=== PATIENT | male | born 1965 | race Caucasian/White ===

== ENCOUNTER 2022-11-25 11:47 | Emergency (ER) | payer BC, SELFPAY ==
[2022-11-25 12:13] VITALS: BP 187/116; PULSE 102; RESP 16; TEMP 36.2; O2SAT 96; BMI 27.4
--- NOTE | 2022-11-25 12:13 | ED.GENADULT ---
HPI - General Adult General Chief complaint: Recheck/Abnormal Lab/Rx Stated complaint: High blood pressure Time Seen by Provider: 11/25/22 13:03 Related Data Allergies Allergy/AdvReac Type Severity Reaction Status Date / Time No Known Allergies Allergy Verified 11/25/22 12:12 [facility] Social History Social History Smoked in Last 30 Days: No Use of substances other than those prescribed or required for medical reasons: No Advance Directives: No Advance Directives Information Provided: No Physical Exam ED Vital Signs: Vital Signs - 24 hr 11/25/22 12:13 11/25/22 12:51 11/25/22 14:05 Temperature 97.2 F 97.5 F 97.8 F Pulse Rate 102 H 94 91 Respiratory Rate 16 18 Blood Pressure 187/116 H 158/93 H 136/97 H Pulse Oximetry 96 98 96 Oxygen Delivery Method Room Air Room Air Room Air BMI result Body Mass Index 27.4 Course Course Course Narrative: This is an RME: Additional HPI, ROS, PE not included below will be deferred to primary provider. Patient is a 56-year-old male with history of HTN presenting to the emergency department with elevated blood pressure. Had previously been on atenolol but has not been on for years. Attempted to see PCP to restart BP medication but was told he had not been to the office for too long a period and would need to be seen in the ED. BP at home was reading 160/116. Denies any chest pain, shortness of breath, headaches, or vision changes. Medical Decision Making Lab Data 11/25/22 12:28 11/25/22 12:28 Labs: Lab Results 11/25/22 11/25/22 11/25/22 Range/Units 12:28 12:28 12:28 WBC 8.2 (4.8-10.8) X10*3/uL RBC 5.74 (4.60-5.80) X10*6/uL Hgb 16.9 (14.0-18.0) g/dl Hct 48.6 (42.0-52.0) % MCV 84.7 (80.0-98.0) fL MCH 29.4 (27.0-33.0) pg MCHC 34.8 (31.0-36.0) g/dl RDW 11.7 (11.0-16.0) % Plt Count 270 (160-400) X10*3/uL MPV 9.9 (9.4-12.4) fL Immature Gran % (Auto) 0.2 (0.0-0.4) % Neut % (Auto) 67.1 (45-73) % Lymph % (Auto) 19.6 L (20-40) % [place] % (Auto) 9.3 (2-11) % Eos % (Auto) 3.2 (0-4) % Baso % (Auto) 0.6 (0-2) % Lymph # (Auto) 1.6 (1.2-4.9) X10*3/uL [place] # (Auto) 0.8 (0.1-1.2) X10*3/uL Eos # (Auto) 0.3 (0.0-0.4) X10*3/uL Baso # (Auto) 0.1 (0.0-0.2) X10*3/uL Abs Immat Gran (auto) 0.02 (0.00-0.03) X10*3/uL Absolute Neuts (auto) 5.5 (2.0-8.3) x10*3/uL Absolute Nucleated RBC 0.000 (0.0-0.012) X10*3/uL Nucleated RBC % (auto) 0.0 (0.0-0.2) /100WBC Sodium 140 (135-145) mmol/L Potassium 4.2 (3.3-5.1) mmol/L Chloride 104 (96-108) mmol/L Carbon Dioxide 27 (22-29) mmol/L Anion Gap 13 (12-20) BUN 14 (9-16) mg/dL Creatinine 0.89 (0.5-1.4) mg/dL Estim Creat Clear Calc 91.6 Estimated GFR > 60 Random Glucose 94 (60-115) mg/dL Calcium 10.3 H (8.4-10.2) mg/dL Troponin I High Sens < 2.7 (<3.5-35.0) ng/L Discharge Plan Discharge Clinical Impression: Hypertension Patient Disposition: Home, Self-Care Instructions: Chronic Hypertension (ED) Additional Instructions: Please have your blood pressure recheck in 24-48 hours. Referrals: Paul Bates MD [Physician] - 11/27/22 (Please follow-up with your provider closely for blood pressure recheck in approximately 24-48 hours.) Physician,None [Primary Care Provider] - Interventions: ED Discharge Assessment Last Done: 11/25/22 14:08 Discharge Date/Time: 11/25/22 14:00
--- NOTE | 2022-11-25 12:15 | ECG_ITS ---
Test Reason : elevated blood pressure Blood Pressure : / mmHG Vent. Rate : 063 BPM Atrial Rate : 063 BPM P-R Int : 168 ms QRS Dur : 078 ms QT Int : 406 ms P-R-T Axes : 046 036 055 degrees QTc Int : 415 ms Normal sinus rhythm Normal ECG No previous ECGs available Referred By: Deirdre Olivia Electronically Signed By:AILYN KRISHNAN MD
[2022-11-25 12:33] LABS: MANUAL DIFF FLAG NO
[2022-11-25 12:35] LABS: Basophils Absolute Auto 0.1 X10*3/uL (0.0-0.2); Basophils Percent Auto 0.6 % (0-2); Eosinophils Absolute Auto 0.3 X10*3/uL (0.0-0.4); Eosinophils Percent Auto 3.2 % (0-4); Hematocrit 48.6 % (42.0-52.0); Hemoglobin 16.9 g/dl (14.0-18.0); Imm Gran Abs Auto 0.02 X10*3/uL (0.00-0.03); Imm Gran Pct Auto 0.2 % (0.0-0.4); Lymphocytes Absolute Auto 1.6 X10*3/uL (1.2-4.9); Lymphocytes Percent Auto 19.6 % (20-40); Mean Corpuscular HGB Conc 34.8 g/dl (31.0-36.0); Mean Corpuscular Hemoglobin 29.4 pg (27.0-33.0); Mean Corpuscular Volume 84.7 fL (80.0-98.0); Mean Platelet Volume 9.9 fL (9.4-12.4); Monocytes Absolute Auto 0.8 X10*3/uL (0.1-1.2); Monocytes Percent Auto 9.3 % (2-11); Neutrophils Absolute Auto 5.5 x10*3/uL (2.0-8.3); Neutrophils Percent Auto 67.1 % (45-73); Platelet Count 270 X10*3/uL (160-400); Red Blood Count 5.74 X10*6/uL (4.60-5.80); Red Cell Distribution Width 11.7 % (11.0-16.0); White Blood Count 8.2 X10*3/uL (4.8-10.8)
[2022-11-25 12:51] VITALS: BP 158/93; PULSE 94; TEMP 36.4; O2SAT 98
[2022-11-25 12:51] LABS: Anion Gap 13 (12-20); Blood Urea Nitrogen 14 mg/dL (9-16); Calcium 10.3 mg/dL (8.4-10.2); Carbon Dioxide 27 mmol/L (22-29); Chloride 104 mmol/L (96-108); Creatinine Clr Calc Pharmacy 91.6; Estimated Glomerular Filt Rate > 60; Glucose Random 94 mg/dL (60-115); Potassium 4.2 mmol/L (3.3-5.1); Sodium 140 mmol/L (135-145)
--- NOTE | 2022-11-25 12:57 | PC.NURSE ---
aox4. calm, coop. no neuro deficits. reports mildly improved bp here than at home. no distress noted. denies sob/n/v/d/cp/dizziness or other sx.
[2022-11-25 13:03] LABS: Troponin-I High Sensitivity < 2.7 ng/L (<3.5-35.0)
--- NOTE | 2022-11-25 13:36 | ED_ITS ---
HPI - Recheck/Abnormal Lab/Rx General Chief Complaint: Recheck/Abnormal Lab/Rx Stated Complaint: High blood pressure Time Seen by Provider: 11/25/22 13:03 History of Present Illness HPI narrative: Patient is a 56-year-old male presents today with having elevated blood pressure at home. Patient usually takes his blood pressure when he is at work. 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 He feels stressed at times. Patient measures blood pressure at times there was 160/110. He denies having any symptoms. No chest pain or shortness of breath no nausea no vomiting no headache no dizziness no focal weakness. Patient had a previous history of high blood pressure have been off medications since 2015. He is from home. Related Data Allergies Allergy/AdvReac Type Severity Reaction Status Date / Time No Known Allergies Allergy Verified 11/25/22 12:12 Review of Systems Review of Systems: No fever no chills no chest pain or shortness breath no systemic complaints Yes all other systems are reviewed and are negative [facility] Past Medical History Attestation statement: The following information was validated with the patient. Social History Social History Smoked in Last 30 Days: No Use of substances other than those prescribed or required for medical reasons: No Advance Directives: No Advance Directives Information Provided: No Physical Exam Vital Signs: Vital Signs: Last Vital Signs Temp 97.5 F 11/25/22 12:51 Pulse 94 11/25/22 12:51 Resp 16 11/25/22 12:13 BP 158/93 H 11/25/22 12:51 Pulse Ox 98 11/25/22 12:51 O2 Del Method Room Air 11/25/22 12:51 BMI result Body Mass Index 27.4 Appearance: Alert. Oriented X3. No acute distress. Eyes: Pupils equal, round and reactive to light. ENT: Pharynx normal. Neck: Normal inspection. Neck supple. No lymph nodes noted. No crepitus CVS: Normal heart rate and rhythm. Pulses normal. Normal S1 and S2 Respiratory: No respiratory distress. Breath sounds normal. No Wheezing. No rales Abdomen: Soft and nontender. No rigidity. No distention. good BS x4 Skin: Skin warm and dry. Normal skin color. Normal skin turgor. Extremities: No lower extremity edema. Neurovascular intact to all extremities. No Lacerations. No Rash Neuro: Oriented X 3. No motor deficit. No sensory deficit. Moving all extermities. No slurred speech Medical Decision Making Medical Decision Making [facility] Narrative: Patient asymptomatic. Has many stressful events in his life. His blood pre ssure on recheck in the emergency department is approximately 160/100. Cobb at this time patient should closely follow up with his primary physician in a few days for repeat blood pressure check. Patient's kidney function was normal there is no evidence of kidney failure. My interpretation of patient's EKG showed a sinus rhythm heart rate is 75 the [place] QRS QT see was normal there is no acute ST segment elevation noted. Patient in no distress. Will discharge patient home. Differential Diagnosis Differential Diagnoses: The differential diagnosis associated with the presentation includes Hypertension Lab Data [facility] Lab Attestation statement: I reviewed the patient's lab results. 11/25/22 12:28 11/25/22 12:28 Labs: Lab Results 11/25/22 11/25/22 11/25/22 Range/Units 12:28 12:28 12:28 WBC 8.2 (4.8-10.8) X10*3/uL RBC 5.74 (4.60-5.80) X10*6/uL Hgb 16.9 (14.0-18.0) g/dl Hct 48.6 (42.0-52.0) % MCV 84.7 (80.0-98.0) fL MCH 29.4 (27.0-33.0) pg MCHC 34.8 (31.0-36.0) g/dl RDW 11.7 (11.0-16.0) % Plt Count 270 (160-400) X10*3/uL MPV 9.9 (9.4-12.4) fL Immature Gran % (Auto) 0.2 (0.0-0.4) % Neut % (Auto) 67.1 (45-73) % Lymph % (Auto) 19.6 L (20-40) % [place] % (Auto) 9.3 (2-11) % Eos % (Auto) 3.2 (0-4) % Baso % (Auto) 0.6 (0-2) % Lymph # (Auto) 1.6 (1.2-4.9) X10*3/uL [place] # (Auto) 0.8 (0.1-1.2) X10*3/uL Eos # (Auto) 0.3 (0.0-0.4) X10*3/uL Baso # (Auto) 0.1 (0.0-0.2) X10*3/uL Abs Immat Gran (auto) 0.02 (0.00-0.03) X10*3/uL Absolute Neuts (auto) 5.5 (2.0-8.3) x10*3/uL Absolute Nucleated RBC 0.000 (0.0-0.012) X10*3/uL Nucleated RBC % (auto) 0.0 (0.0-0.2) /100WBC Sodium 140 (135-145) mmol/L Potassium 4.2 (3.3-5.1) mmol/L Chloride 104 (96-108) mmol/L Carbon Dioxide 27 (22-29) mmol/L Anion Gap 13 (12-20) BUN 14 (9-16) mg/dL Creatinine 0.89 (0.5-1.4) mg/dL Estim Creat Clear Calc 91.6 Estimated GFR > 60 Random Glucose 94 (60-115) mg/dL Calcium 10.3 H (8.4-10.2) mg/dL Troponin I High Sens < 2.7 (<3.5-35.0) ng/L Independent Interpretation I performed an independent interpretation of an: EKG Interpretation: Sinus heart rate is 75 [place] QRS QTC within normal limits there is no acute ST segment elevation. Chronic Conditions Patient?s care impacted by: Hypertension Discharge Plan Discharge Clinical Impression: Hypertension Patient Disposition: Home, Self-Care Instructions: Chronic Hypertension (ED) Additional Instructions: Please have your blood pressure recheck in 24-48 hours. Referrals: Physician,None [Primary Care Provider] - Paul Bates MD [Physician] - 11/27/22 (Please follow-up with your provider closely for blood pressure recheck in approximately 24-48 hours.)
[2022-11-25 14:05] VITALS: BP 136/97; PULSE 91; RESP 18; TEMP 36.6; O2SAT 96
--- NOTE | 2022-11-25 14:06 | PC.NURSE ---
remains NSR on monitor. bp has decreased to 136/97. denies sx.
== END 2022-11-25 14:00 | disposition home or self-care (01) ==
PROVIDERS: Registered Nurse Emergency; Emergency Provider Emergency Medicine Emergency Medical Services
DX: I10 Essential (primary) hypertension (principal); Z72.89 Other problems related to lifestyle; Z56.6 Other physical and mental strain related to work; Z79.899 Other long term (current) drug therapy
CPT/HCPCS: 36415; 80048; 84484; 85025; 93005; 99283; 99284

== ENCOUNTER → 2022-11-25 12:15 | Outpatient (BNV) | payer BC, SELFPAY | PROVIDERS: Emergency Provider Emergency Medicine Emergency Medical Services; Visit Provider Internal Medicine Cardiovascular Disease | DX: R03.0 Elevated blood-pressure reading, without diagnosis of hypertension (principal) | CPT/HCPCS: 93010 ==

== ENCOUNTER 2023-02-11 15:32 | Outpatient (AMB) | payer BC, SELFPAY ==
[2023-02-11 15:33] VITALS: BP 162/98; PULSE 95; O2SAT 97; BMI 27.6
--- NOTE | 2023-02-11 15:33 | MHC.PC.OV ---
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 Previous PCP Dr. Bates about 6 years ago. Medical history significant for overweight. Patient also reports that he noticed elevated blood pressures lately, systolic blood pressures in 160s, diastolic blood pressures between 105 and 110. He denies shortness of breath or chest pain, no headache, no vision changes. Reports he was on atenolol in the past for high blood pressure. Denies eye problems, does not see eye doctor. He will call for dental exam. We also discussed patient's need for colon cancer screening, patient will think about colonoscopy or a Cologuard, would like to hold off at this time, he denies changes in bowel movements. Denies other concerns today. [facility] Surgical History H/O vasectomy History of hernia surgery H/O elbow surgery Family History Mother No problems noted. Father No problems noted. Social History Patient Tobacco Use Status: Never used Tobacco service: No Current occupational status: employed Cognitive needs: No Hearing needs: No Vision needs: No Questionnaire PHQ-9 Over the last 2 weeks, how often have you been bothered by any of the following problems? 1. Little interest or pleasure in doing things: not at all 2. Feeling down, depressed, or hopeless: not at all 3. Trouble falling or staying asleep, or sleeping too much: not at all 4. Feeling tired or having little energy: not at all 5. Poor appetite or overeating: not at all 6. Feeling bad about yourself - or that you are a failure or have let yourself or your family down: not at all 7. Trouble concentrating on things, such as reading the newspaper or watching television: not at all 8. Moving or speaking so slowly that other people could have noticed. Or the opposite - being so fidgety or restless that you have been moving around a lot more than usual: not at all 9. Thoughts that you would be better off or of hurting yourself in some way: not at all Total score: 0 Depression Screening Interpretation: Negative 58205 - PHQ-9 Billing: Yes Source: Developed by Drs. Morgan Buchanan, Brunilda Latham, Zeeshan Richard and colleagues, with an educational emiliano from [employer]. Thrive Questionnaire Date Thrive assessed: 02/11/23 I am a: Patient What is your living situation today?: I have a steady place to live Within the past 12 months, did the food you bought not last and you didn't have the money to get more?: Never true Within the past 12 months, did you worry whether your food would run out before you got money to buy more?: Never true Do you have trouble paying for medicines?: No Do you have trouble getting transportation to medical appointments?: No Do you have trouble paying your heating and electricity bill?: No Do you have trouble taking care of your child, family member or friend?: No Do you have trouble with day-to-day activities such as bathing, preparing meals, shopping, managing finances, etc.?: No Are you currently unemployed and looking for a job?: No Are you interested in more education?: No Currently or been in a relationship where the following occur: no concerns reported AUDIT C Alcohol Use Questionnaire (AUDIT-C) 1. How often do you have a drink containing alcohol?: 2-4 times a month 2. How many drinks containing alcohol do you have on a typical day when you are drinking?: 1 or 2 3. How often do you have six or more drinks on one occasion?: Never Total Score: 2 Score Reviewed/Action Taken: No SHERRIE-7 AMB Questionnaire SHERRIE-7 Date SHERRIE - 7 assessed: 02/11/23 Feeling nervous, anxious, or on edge: 0 = Not at all Not being able to stop or control worryin = Not at all Worrying too much about different things: 0 = Not at all Trouble relaxin = Not at all Being so restless that it is hard to sit still: 0 = Not at all Becoming easily annoyed or irritable: 0 = Not at all Feeling afraid as if something awful might happen: 0 = Not at all Total SHERRIE-7 score (0-4 normal; 5-9 mild; 10-14 moderate; 15-21 severe): 0 Source: Developed by Drs. Morgan Buchanan, Brunilda Latham, Zeeshan Richard and colleagues, with an educational emiliano from [employer]. SHERRIE-7 Assessment Billing SHERRIE-7 Assessment Tool: SHERRIE-7 Assessment 49021 Review of Systems Const Denies body aches, Denies chills, Denies fever(s) and Denies headache(s) Eyes Denies change in vision ENT Denies dizziness, Denies otalgia, Denies headache(s), Denies nasal discharge, Denies sinus pain and Denies sore throat Card Denies chest pain, Denies edema, Denies lightheadedness and Denies dyspnea Resp Denies cough, Denies dyspnea and Denies wheezing GI Denies abdominal pain, Denies constipation, Denies diarrhea, Denies nausea and Denies vomiting Denies dysuria Musc Denies myalgias Skin/Breast Denies rash Neuro Denies dizziness and Denies headache(s) Aller/Immun Denies wheezing Physical exam (Primary Care) Vital Signs: Last Vital Signs Pulse 95 02/11/23 15:33 BP 162/98 H 02/11/23 15:33 Pulse Ox 97 02/11/23 15:33 Oxygen Delivery Method Room Air 02/11/23 15:33 BMI result Body Mass Index 27.6 Tobacco/Smoking Status: Tobacco use Status Tobacco use date assessed 02/11/23 02/11/23 15:35 Patient Tobacco Use Status Never used Tobacco 02/11/23 15:35 PHQ-9: PHQ-9 Score PHQ-9: Total score 0 02/11/23 15:35 Depression Screening Interpretation: Negative Thrive Assessment: Date of Thrive Assessment Date Thrive assessed 02/11/23 02/11/23 15:35 Currently or been in a relationship where the following occur: no concerns reported Const General: cooperative and no acute distress Orientation/consciousness: patient oriented x3 HENMT Head: Yes normocephalic and Yes atraumatic Ears: TM's normal bilaterally Face and sinus: Yes sinuses nontender Mouth: oropharynx normal and moist mucous membranes Throat: Yes posterior oropharynx normal Eyes General: appearance normal, both eyes and all related structures Pupils: Equal, round and reactive pupils present EOM: EOMs intact bilaterally Neck Neck: Yes normal visual inspection, Yes full ROM and Yes no lymphadenopathy Thyroid: Thyroid normal Resp Effort & Inspection: normal respiratory effort and able to speak in complete sentences Auscultation: clear to auscultation bilaterally, no crackles, no rales, no rhonchi and no wheezes Cardio Rate: regular rate Rhythm: regular rhythm Heart sounds: S1 normal heart sound present, S2 normal heart sound present and no murmurs GI Palpation (GI): Soft to palpation, not firm, nontender, no guarding, not rigid and no hepatosplenomegaly Auscultation: normal bowel sounds General: No CVA tenderness Back/Spine/Pelvis Back: No CVA tenderness Skin General skin exam: no rashes or lesions noted Neuro General: patient oriented x3 Cranial nerves: Yes Equal, round and reactive pupils present Gait exam (Neuro): Normal gait present Extrem General: Yes full ROM and No edema Assessment and Plan Assessment & Plan (1) Screening for prostate cancer: Code(s): Z12.5 - Encounter for screening for malignant neoplasm of prostate (2) Hypertension: Code(s): I10 - Essential (primary) hypertension Plan: Goal BP equal or less than 140/90 Blood pressure elevated in the office today Patient also reports elevated blood pressures at home Start atenolol 25 mg daily Continue to monitor blood pressures at home Low-sodium diet and weight loss Signs and symptoms reviewed when to notify provider or go to the emergency department Follow-up with nurse in 2 weeks for BP recheck (3) Overweight (BMI 25.0-29.9): Code(s): E66.3 - Overweight Plan: Healthy food choices and exercise as tolerated (4) Adult general medical exam: Code(s): Z00.00 - Encounter for general adult medical examination without abnormal findings (5) Colon cancer screening declined: Code(s): Z53.20 - Procedure and treatment not carried out because of patient's decision for unspecified reasons Plan: Patient will think about colonoscopy or a Cologuard, would like to hold off at this time, denies changes in bowel movements Plan Follow-up in 3 months or sooner as needed Orders: Orders Vitamin D 25-OH Total Today I10 - Essential (primary) hypertension TSH reflex Free T4 Today I10 - Essential (primary) hypertension Lipid Panel Today I10 - Essential (primary) hypertension Complete Blood Count Auto Diff Today I10 - Essential (primary) hypertension Vitamin B12 and Folate Today I10 - Essential (primary) hypertension Comprehensive [place]. Panel Fast Today I10 - Essential (primary) hypertension Prostate Specific Antigen Today Z12.5 - Encounter for screening for malignant neoplasm of prostate Medications: New atenolol 25 mg PO DAILY 30 tabs 3RF I10 - Essential (primary) hypertension Coding Level of Care Code New Pt Prev Care 40-64y([id number]) Diagnoses Screening for prostate cancer Z12.5 Hypertension I10 Overweight (BMI 25.0-29.9) E66.3 Adult general medical exam Z00.00 Colon cancer screening declined Z53.20 Additional Codes SHERRIE-7 Assessment Billing - SHERRIE-7 Assessment Tool: SHERRIE-7 Assessment [id number] ([id number])
[2023-02-11 15:57] VITALS: BP 150/94
== END 2023-02-11 16:06 | disposition home or self-care (01) ==
PROVIDERS: Visit Provider Nurse Practitioner Family
DX: Z12.5 Encounter for screening for malignant neoplasm of prostate (principal); I10 Essential (primary) hypertension; E66.3 Overweight; Z00.00 Encounter for general adult medical examination without abnormal findings; Z53.20 Procedure and treatment not carried out because of patient's decision for unspecified reasons
CPT/HCPCS: 99386

== ENCOUNTER 2023-02-15 07:01 | Outpatient (REF) | payer BC, SELFPAY ==
[2023-02-15 07:25] LABS: MANUAL DIFF FLAG NO
[2023-02-15 08:24] LABS: Basophils Percent Auto 0.4 % (0-2); Eosinophils Absolute Auto 0.2 X10*3/uL (0.0-0.4); Hematocrit 45.9 % (42.0-52.0); Hemoglobin 16.3 g/dl (14.0-18.0); Imm Gran Abs Auto 0.01 X10*3/uL (0.00-0.03); Imm Gran Pct Auto 0.1 % (0.0-0.4); Lymphocytes Absolute Auto 2.5 X10*3/uL (1.2-4.9); Lymphocytes Percent Auto 33.3 % (20-40); Mean Corpuscular HGB Conc 35.5 g/dl (31.0-36.0); Mean Corpuscular Hemoglobin 30.1 pg (27.0-33.0); Mean Corpuscular Volume 84.8 fL (80.0-98.0); Mean Platelet Volume 10.8 fL (9.4-12.4); Monocytes Absolute Auto 0.8 X10*3/uL (0.1-1.2); Monocytes Percent Auto 10.6 % (2-11); Neutrophils Percent Auto 52.6 % (45-73); Platelet Count 249 X10*3/uL (160-400); Red Blood Count 5.41 X10*6/uL (4.60-5.80); Red Cell Distribution Width 11.5 % (11.0-16.0); White Blood Count 7.6 X10*3/uL (4.8-10.8)
[2023-02-15 08:56] LABS: Alanine Aminotransferase 21 U/L (0-40); Albumin Level 4.4 g/dL (3.5-5.0); Alkaline Phosphatase 60 U/L (39-117); Anion Gap 13 (12-20); Aspartate Amino Transferase 20 U/L (5-37); Bilirubin Total 1.6 mg/dL (0.0-1.0); Blood Urea Nitrogen 19 mg/dL (9-16); Calcium 9.8 mg/dL (8.4-10.2); Carbon Dioxide 27 mmol/L (22-29); Chloride 106 mmol/L (96-108); Cholesterol 198 mg/dL (<200); Estimated Glomerular Filt Rate > 60; Glucose Fasting 91 mg/dL (60-99); HDL Cholesterol 42 mg/dL (>40); LDL Cholesterol Calculated 137 mg/dL (<100); Sodium 142 mmol/L (135-145); Total Protein 6.8 g/dL (6.5-8.0); Triglycerides 97 mg/dL (<150)
[2023-02-15 08:57] LABS: TSH reflex Free T4 3.84 uIU/mL (0.32-4.0); Vitamin D 25-OH Total 49.1 ng/mL (>30)
[2023-02-15 09:35] LABS: Folate 10.6 ng/mL (> or = 4.0); Prostate Specific Antigen 4.19 ng/mL (<0.05-4.0); Vitamin B12 387 pg/mL (200-900)
== END 2023-02-15 07:02 | disposition home or self-care (01) ==
LOC: HO.LAB 07:01
PROVIDERS: PCP Nurse Practitioner Family; Visit Provider Nurse Practitioner Family
DX: I10 Essential (primary) hypertension (principal); Z12.5 Encounter for screening for malignant neoplasm of prostate; E80.6 Other disorders of bilirubin metabolism; R97.20 Elevated prostate specific antigen [PSA]; E66.3 Overweight
CPT/HCPCS: 36415; 80053; 80061; 82306; 82607; 82746; 84153; 84443; 85025

== ENCOUNTER 2023-03-24 07:02 | Outpatient (REF) | payer BC, SELFPAY ==
[2023-03-24 08:02] LABS: Alanine Aminotransferase 17 U/L (0-40); Albumin Level 4.6 g/dL (3.5-5.0); Alkaline Phosphatase 68 U/L (39-117); Aspartate Amino Transferase 20 U/L (5-37); Bilirubin Direct 0.4 mg/dL (0.0-0.5); Bilirubin Total 1.9 mg/dL (0.0-1.0); Total Protein 7.3 g/dL (6.5-8.0)
[2023-03-24 08:19] LABS: Prostate Specific Antigen 3.43 ng/mL (<0.05-4.0)
== END 2023-03-24 07:03 | disposition home or self-care (01) ==
LOC: HO.LAB 07:02
PROVIDERS: PCP Nurse Practitioner Family; Visit Provider Nurse Practitioner Family
DX: Z12.5 Encounter for screening for malignant neoplasm of prostate (principal); R17 Unspecified jaundice; R97.20 Elevated prostate specific antigen [PSA]
CPT/HCPCS: 36415; 80076; 84153

== ENCOUNTER 2023-09-10 08:47 | Outpatient (AMB) | payer BC, SELFPAY ==
--- NOTE | 2023-09-10 08:52 | MHC.PC.OV ---
Vital Signs 09/10/23 08:55 Height 5 ft 6 in Weight 171 lb 4 oz BMI 27.6 BP 130/90 H Blood Pressure Location Lt brachial Position Sitting Pulse 65 Pulse Source Pulse Oximeter Pulse Oximetry (%) 97 Oxygen Delivery Method Room Air Intake Visit Reasons: Annual PE /Transfer Of Care Dr. Harrison ( [facility]) Intake Note: Patient is here today for a physical and [employer] from [employer] Required: No Tie Carrier: Not Required per policy Accompanied by: Self / Same As Patient Allergies hydrochlorothiazide Adverse Reaction (Intermediate, Verified 09/10/23 09:47) Dizziness lisinopril Adverse Reaction (Intermediate, Verified 09/10/23 09:47) dizziness Medication List - Last Reconciled 09/10/23 by Bakari Barbosa MD atenolol 25 mg PO DAILY Tobacco use date assessed: 09/10/23 Dental Screening Dental Screen Date: 09/10/23 Did you have a dental visit in the last 12 months?: No Did you have a dental problem in the last 6 months where you did not have access to dental care?: No Was dental information given to patient?: No HPI Annual PE /Transfer Of Care Dr. Harrison ( [facility]) HPI Details Patient comes in today for his follow up visit - is transferring over from Shanel Harrison, who is no longer with the practice He was originally scheduled for an annual physical today but explained to patient that as he just had a physical done with Shanel potts on 02/11/2023, he is not yet due for one and insurance will not cover another physical exam within a year if his last one Patient states that he feels okay and that his blood pressure seems to be adequately controlled on his current Rx of Atenolol 25 mg QD States that he checks his own blood pressure every now and then and his readings have been good lately He recalls being started on HCTZ and on Lisinopril separately by his previous PCP (Dr. Bates) many years ago and could not tolerate both Rx (dizziness) He currently denies any headaches or dizziness Denies any chest pains, no SOB No nausea/vomiting, no abdominal pain No change in bowel habits noted States that he has been experiencing problems with ED as well over the past few years Has tried Viagra in the past with satisfactory results and would like to get a refill for some ED Rx - would like to try Cialis instead PFSH Medical History (Updated 09/10/23 @ 10:13 by Bakari Barbosa MD) Overweight (BMI 25.0-29.9) Erectile dysfunction Elevated bilirubin Pure hypercholesterolemia Essential hypertension Surgical History H/O vasectomy History of hernia surgery H/O elbow surgery Family History Mother No problems noted. Father No problems noted. Social History Housing: House Alcohol intake: current Alcohol intake frequency: a few times a month Patient Tobacco Use Status: Never used Tobacco e-Cigarette/Vaping Use: Never Used Second Hand Smoke Exposure: No service: No Current occupational status: employed Cognitive needs: No Hearing needs: No Vision needs: Yes (Glasses) Questionnaire PHQ-9 Over the last 2 weeks, how often have you been bothered by any of the following problems? 1. Little interest or pleasure in doing things: not at all 2. Feeling down, depressed, or hopeless: not at all 3. Trouble falling or staying asleep, or sleeping too much: not at all 4. Feeling tired or having little energy: not at all 5. Poor appetite or overeating: not at all 6. Feeling bad about yourself - or that you are a failure or have let yourself or your family down: not at all 7. Trouble concentrating on things, such as reading the newspaper or watching television: not at all 8. Moving or speaking so slowly that other people could have noticed. Or the opposite - being so fidgety or restless that you have been moving around a lot more than usual: not at all 9. Thoughts that you would be better off or of hurting yourself in some way: not at all Total score: 0 Depression Screening Interpretation: Negative Depression Screening Done: Yes 56307 - PHQ-9 Billing: Yes Source: Developed by Drs. Morgan Buchanan, Brunilda Latham, Zeeshan Richard and colleagues, with an educational emiliano from [employer]. Thrive Questionnaire Date Thrive assessed: 09/10/23 I am a: Patient What is your living situation today?: I have a steady place to live Within the past 12 months, did the food you bought not last and you didn't have the money to get more?: Never true Within the past 12 months, did you worry whether your food would run out before you got money to buy more?: Never true Do you have trouble paying for medicines?: No Do you have trouble getting transportation to medical appointments?: No Do you have trouble paying your heating and electricity bill?: No Do you have trouble taking care of your child, family member or friend?: No Do you have trouble with day-to-day activities such as bathing, preparing meals, shopping, managing finances, etc.?: No Are you currently unemployed and looking for a job?: No Are you interested in more education?: No Currently or been in a relationship where the following occur: no concerns reported THRIVE Score: 0 AUDIT C Alcohol Use Questionnaire (AUDIT-C) 1. How often do you have a drink containing alcohol?: 2-4 times a month 2. How many drinks containing alcohol do you have on a typical day when you are drinking?: 1 or 2 3. How often do you have six or more drinks on one occasion?: Never Total Score: 2 Score Reviewed/Action Taken: No SHERRIE-7 AMB Questionnaire SHERRIE-7 Date SHERRIE - 7 assessed: 02/11/23 Source: Developed by Drs. Morgan Buchanan, Brunilda Latham, Zeeshan Richard and colleagues, with an educational emiliano from [employer]. Review of Systems Const Denies chills, Denies fatigue, Denies fever(s) and Denies headache(s) ENT Denies dysphagia, Denies dizziness, Denies otalgia, Denies headache(s), Denies neck pain, Denies odynophagia and Denies sore throat Card Denies chest pain, Denies palpitations and Denies dyspnea Resp Denies cough and Denies dyspnea GI Denies abdominal pain, Denies constipation, Denies dysphagia, Denies heartburn, Denies diarrhea, Denies nausea, Denies odynophagia and Denies vomiting Denies dysuria, Denies nocturia and Denies urinary frequency Musc Denies back pain and Denies neck pain Skin/Breast Denies rash Neuro Denies dizziness and Denies headache(s) Endo Denies fatigue and Denies palpitations Physical exam (Primary Care) Vital Signs: Last Vital Signs Pulse 65 09/10/23 08:55 BP 130/90 H 09/10/23 08:55 Pulse Ox 97 09/10/23 08:55 Oxygen Delivery Method Room Air 09/10/23 08:55 BMI result Body Mass Index 27.6 Tobacco/Smoking Status: Tobacco use Status Tobacco use date assessed 09/10/23 09/10/23 09:02 Patient Tobacco Use Status Never used Tobacco 09/10/23 09:02 e-Cigarette/Vaping Use Never Used 09/10/23 09:02 PHQ-9: PHQ-9 Score PHQ-9: Total score 0 09/10/23 09:02 Depression Screening Interpretation: Negative Thrive Assessment: Date of Thrive Assessment Date Thrive assessed 02/11/23 09/10/23 09:02 Currently or been in a relationship where the following occur: no concerns reported Const General: no acute distress and alert HENMT Ears: TM's normal bilaterally and EAC's normal Throat: Yes posterior oropharynx normal and Yes tonsils normal (no TP congestion) Neck Neck: Yes no lymphadenopathy and Yes supple Resp Auscultation: clear to auscultation bilaterally, no rales and no wheezes Cardio Rate: regular rate Rhythm: regular rhythm Heart sounds: no murmurs GI Palpation (GI): Soft to palpation, nontender and No hepatosplenomegaly present Skin General skin exam: no rashes or lesions noted Extrem General: Yes no clubbing, cyanosis or edema Assessment and Plan Assessment & Plan (1) Essential hypertension: Code(s): I10 - Essential (primary) hypertension Plan: Reinforced low sodium diet - goal is systolic BP of 120 mm or less and diastolic BP of 85 mm or less Continue Atenolol 25 mg QD for now (2) Pure hypercholesterolemia: Code(s): E78.00 - Pure hypercholesterolemia, unspecified Plan: Reinforced low cholesterol diet - goal is LDL cholesterol of at least <130 mg/dl and ideally <100 mg/dl His LDL cholesterol was still slightly elevated at 137 mg/dl when last checked in the fall Will recheck his labs and fasting lipids in 6 months for follow up (3) Elevated bilirubin: Comment: (+) elevated total bilirubin level as far back as 2003 Code(s): R17 - Unspecified jaundice Plan: Advised that his total bilirubin level has been elevated as far back as in 2003 - possible Gilbert's syndrome? Patient denies any acute abdominal pain or symptoms Will continue to monitor this for now and also consider abdominal US if his bilirubin level remains elevated on his next labs in 6 months (4) Elevated PSA: Code(s): R97.20 - Elevated prostate specific antigen [PSA] Plan: Patient is advised that his PSA level was at 3.43 when rechecked in March 2023 Discussed that PSA levels consistently above 2.5 in the absence of any prostate symptoms should ideally be further evaluated Advised that we will recheck his PSA in 6 months and if it remains elevated, then I would recommend a referral to urology for further evaluation (5) Erectile dysfunction: Code(s): N52.9 - Male erectile dysfunction, unspecified Qualifiers: Erectile dysfunction type: unspecified Qualified Code(s): N52.9 - Male erectile dysfunction, unspecified Plan: Per request, will try him this time on Tadalafil 5 mg QD (6) Overweight (BMI 25.0-29.9): Code(s): E66.3 - Overweight Plan: Reinforced diet/exercise as tolerated/lose weight Plan To return in 6 months for his next annual physical examination Orders: Orders UA CC w/rflx Micro + Cult 6 Months R30.0 - Dysuria, Z00.00 - Encounter for general adult medical examination without abnormal findings Prostate Specific Antigen 6 Months N40.0 - Benign prostatic hyperplasia without lower urinary tract symptoms, Z00.00 - Encounter for general adult medical examination without abnormal findings Complete Blood Count Auto Diff 6 Months D64.9 - Anemia, unspecified, Z00.00 - Encounter for general adult medical examination without abnormal findings Comprehensive [place]. Panel Fast 6 Months E78.00 - Pure hypercholesterolemia, unspecified, Z00.00 - Encounter for general adult medical examination without abnormal findings Lipid Panel 6 Months E78.00 - Pure hypercholesterolemia, unspecified, Z00.00 - Encounter for general adult medical examination without abnormal findings TSH reflex Free T4 6 Months E78.00 - Pure hypercholesterolemia, unspecified, Z00.00 - Encounter for general adult medical examination without abnormal findings Vitamin D 25-OH Total 6 Months E55.9 - Vitamin D deficiency, unspecified, Z00.00 - Encounter for general adult medical examination without abnormal findings Medications: New tadalafil 5 mg PO DAILY 30 days 30 tabs 5RF sexual activity Changed From atenolol 25 mg PO DAILY 30 tabs 3RF I10 - Essential (primary) hypertension To atenolol 25 mg PO DAILY 90 days 90 tabs 3RF I10 - Essential (primary) hypertension Coding Level of Care Code Est Pt Level 4 (86929) Diagnoses Essential hypertension I10 Pure hypercholesterolemia E78.00 Elevated bilirubin R17 Elevated PSA R97.20 Erectile dysfunction, unspecified erectile dysfunction type N52.9 Erectile dysfunction type: unspecified Overweight (BMI 25.0-29.9) E66.3
[2023-09-10 08:55] VITALS: BP 130/90; PULSE 65; O2SAT 97; BMI 27.6
== END 2023-09-10 09:59 | disposition home or self-care (01) ==
PROVIDERS: PCP Nurse Practitioner Family; Visit Provider Internal Medicine
DX: I10 Essential (primary) hypertension (principal); E78.00 Pure hypercholesterolemia, unspecified; R17 Unspecified jaundice; R97.20 Elevated prostate specific antigen [PSA]; N52.9 Male erectile dysfunction, unspecified; E66.3 Overweight
CPT/HCPCS: 99214

== ENCOUNTER 2024-03-07 07:12 | Outpatient (REF) | payer BC, SELFPAY ==
[2024-03-07 07:35] LABS: MANUAL DIFF FLAG NO
[2024-03-07 07:42] LABS: Basophils Percent Auto 0.6 % (0-2); Eosinophils Absolute Auto 0.3 X10*3/uL (0.0-0.4); Eosinophils Percent Auto 4.1 % (0-4); Hematocrit 45.6 % (42.0-52.0); Hemoglobin 15.9 g/dl (14.0-18.0); Imm Gran Abs Auto 0.02 X10*3/uL (0.00-0.03); Imm Gran Pct Auto 0.3 % (0.0-0.4); Lymphocytes Absolute Auto 2.2 X10*3/uL (1.2-4.9); Lymphocytes Percent Auto 30.4 % (20-40); Mean Corpuscular HGB Conc 34.9 g/dl (31.0-36.0); Mean Corpuscular Hemoglobin 29.6 pg (27.0-33.0); Mean Corpuscular Volume 84.9 fL (80.0-98.0); Mean Platelet Volume 10.3 fL (9.4-12.4); Monocytes Absolute Auto 0.8 X10*3/uL (0.1-1.2); Monocytes Percent Auto 10.5 % (2-11); Neutrophils Absolute Auto 3.9 x10*3/uL (2.0-8.3); Neutrophils Percent Auto 54.1 % (45-73); Platelet Count 218 X10*3/uL (160-400); Red Blood Count 5.37 X10*6/uL (4.60-5.80); Red Cell Distribution Width 11.9 % (11.0-16.0); White Blood Count 7.1 X10*3/uL (4.8-10.8)
[2024-03-07 08:16] LABS: Alanine Aminotransferase 23 U/L (0-40); Albumin Level 4.4 g/dL (3.5-5.0); Alkaline Phosphatase 58 U/L (39-117); Anion Gap 9 (12-20); Aspartate Amino Transferase 24 U/L (5-37); Bilirubin Total 1.6 mg/dL (0.0-1.0); Blood Urea Nitrogen 16 mg/dL (9-16); Calcium 9.6 mg/dL (8.4-10.2); Carbon Dioxide 30 mmol/L (22-29); Chloride 106 mmol/L (96-108); Cholesterol 175 mg/dL (<200); Estimated Glomerular Filt Rate > 60; Glucose Fasting 97 mg/dL (60-99); HDL Cholesterol 38 mg/dL (>40); LDL Cholesterol Calculated 115 mg/dL (<100); Potassium 4.1 mmol/L (3.3-5.1); Sodium 141 mmol/L (135-145); Total Protein 6.8 g/dL (6.5-8.0); Triglycerides 110 mg/dL (<150)
[2024-03-07 08:31] LABS: Prostate Specific Antigen 3.36 ng/mL (<0.05-4.0)
[2024-03-07 08:32] LABS: TSH reflex Free T4 2.61 uIU/mL (0.32-4.0); Vitamin D 25-OH Total 85.7 ng/mL (>30)
[2024-03-07 08:37] LABS: Appearance Urine Clear; Color Urine Yellow; Glucose Urine UA Negative (Negative); Leukocyte Esterase Urine Negative (Negative); Nitrite Urine Negative (Negative); PH 5.5 (5.0-9.0); Urine Blood Negative (Negative); Urine Ketones Negative (Negative); Urine Protein Negative (Neg-Trace)
== END 2024-03-07 07:13 | disposition home or self-care (01) ==
LOC: HO.LAB 07:12
PROVIDERS: PCP Internal Medicine; Visit Provider Internal Medicine
DX: Z00.00 Encounter for general adult medical examination without abnormal findings (principal); R30.0 Dysuria; E78.00 Pure hypercholesterolemia, unspecified; N40.0 Benign prostatic hyperplasia without lower urinary tract symptoms; D64.9 Anemia, unspecified; E55.9 Vitamin D deficiency, unspecified; Z12.5 Encounter for screening for malignant neoplasm of prostate
CPT/HCPCS: 36415; 80053; 80061; 81003; 82306; 84153; 84443; 85025

== ENCOUNTER 2024-03-14 14:04 | Outpatient (AMB) | payer BC, SELFPAY ==
[2024-03-14 14:21] VITALS: BP 136/80; PULSE 68; O2SAT 97; BMI 27.9
--- NOTE | 2024-03-14 14:21 | MHC.PC.OV ---
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 Required: No Accompanied by: Self / Same As Patient Allergies hydrochlorothiazide Adverse Reaction (Intermediate, Verified 03/14/24 14:46) Dizziness lisinopril Adverse Reaction (Intermediate, Verified 03/14/24 14:46) dizziness Medication List - Last Reconciled 03/14/24 by Bakari Barbosa MD atenolol 25 mg PO DAILY 90 days tadalafil 5 mg PO DAILY 30 days Tobacco use date assessed: 09/10/23 Dental Screening Dental Screen Date: 09/10/23 HPI annual PE - see comments HPI Details Patient comes in today for his annual physical examination States that he feels okay but has a few issues that he would like to discuss or have evaluated further States that he often has allergies and has been taking OTC Susana-D PRN - would like to have an Rx for this sent in to his pharmacy to see if his insurance will cover the Rx Adds that he has been experiencing recurrent heartburns lately - he takes OTC Prilosec PRN and would like to have an Omeprazole Rx sent to his pharmacy as well He denies any headaches or dizziness Denies any chest pains, no SOB No nausea/vomiting, no abdominal pain No change in bowel habits noted He denies any acute urinary symptoms He has a dark spot on top of his head/scalp area that has been there for a while and he would like to have it checked out further - states that the lesion does not itch or hurt He has also been experiencing increased pain over his left heel for a few weeks now - states that the pain feels worse when he first steps down on his foot from sitting or standing and feels a little less painful with increased activity but never disappears completely [facility] Medical History (Updated 03/20/24 @ 09:25 by Bakari Babrosa MD) GERD without esophagitis Overweight (BMI 25.0-29.9) Erectile dysfunction Elevated bilirubin Pure hypercholesterolemia Essential hypertension Surgical History H/O vasectomy History of hernia surgery H/O elbow surgery Family History Mother No problems noted. Father No problems noted. Social History Housing: House Alcohol intake: current Alcohol intake frequency: a few times a month Patient Tobacco Use Status: Never used Tobacco e-Cigarette/Vaping Use: Never Used Second Hand Smoke Exposure: No service: No Current occupational status: employed Cognitive needs: No Hearing needs: No Vision needs: Yes (Glasses) Questionnaire PHQ-9 Over the last 2 weeks, how often have you been bothered by any of the following problems? 1. Little interest or pleasure in doing things: not at all 2. Feeling down, depressed, or hopeless: not at all 3. Trouble falling or staying asleep, or sleeping too much: not at all 4. Feeling tired or having little energy: not at all 5. Poor appetite or overeating: not at all 6. Feeling bad about yourself - or that you are a failure or have let yourself or your family down: not at all 7. Trouble concentrating on things, such as reading the newspaper or watching television: not at all 8. Moving or speaking so slowly that other people could have noticed. Or the opposite - being so fidgety or restless that you have been moving around a lot more than usual: not at all 9. Thoughts that you would be better off or of hurting yourself in some way: not at all Total score: 0 Depression Screening Interpretation: Negative Depression Screening Done: Yes 32479 - PHQ-9 Billing: Yes Source: Developed by Drs. Morgan Buchanan, Brunilda Latham, Zeeshan Richard and colleagues, with an educational emiliano from [employer]. Thrive Questionnaire Date Thrive assessed: 03/07/24 I am a: Patient What is your living situation today?: I have a steady place to live Within the past 12 months, did the food you bought not last and you didn't have the money to get more?: Never true Within the past 12 months, did you worry whether your food would run out before you got money to buy more?: Never true Do you have trouble paying for medicines?: No Do you have trouble getting transportation to medical appointments?: No Do you have trouble paying your heating and electricity bill?: No Do you have trouble taking care of your child, family member or friend?: No Do you have trouble with day-to-day activities such as bathing, preparing meals, shopping, managing finances, etc.?: No Are you currently unemployed and looking for a job?: No Are you interested in more education?: No Please select the resources that you would like help with: None Currently or been in a relationship where the following occur: No concerns reported THRIVE Score: 0 AUDIT C Alcohol Use Questionnaire (AUDIT-C) 1. How often do you have a drink containing alcohol?: 2-4 times a month 2. How many drinks containing alcohol do you have on a typical day when you are drinking?: 3 or 4 3. How often do you have six or more drinks on one occasion?: Less than monthly Total Score: 4 Score Reviewed/Action Taken: Yes SHERRIE-7 AMB Questionnaire SHERRIE-7 Date SHERRIE - 7 assessed: 03/14/24 Feeling nervous, anxious, or on edge: 0 = Not at all Not being able to stop or control worryin = Not at all Worrying too much about different things: 0 = Not at all Trouble relaxin = Not at all Being so restless that it is hard to sit still: 0 = Not at all Becoming easily annoyed or irritable: 0 = Not at all Feeling afraid as if something awful might happen: 0 = Not at all Total SHERRIE-7 score (0-4 normal; 5-9 mild; 10-14 moderate; 15-21 severe): 0 Source: Developed by Drs. Morgan Buchanan, Brunilda Latham, Zeeshan Richard and colleagues, with an educational emiliano from [employer]. Review of Systems Const Denies chills, Denies fatigue, Denies fever(s), Denies headache(s), Denies malaise and Denies weakness Eyes Denies blurry vision, Denies change in vision, Denies irritation and Denies itchy eyes ENT Denies dysphagia, Denies dizziness, Denies otalgia, Denies headache(s), Reports nasal congestion (recurrent - due to allergies), Denies neck pain, Denies odynophagia and Denies sore throat Card Denies chest pain, Denies rapid heart rate, Denies irregular heart rhythm, Denies palpitations and Denies dyspnea Resp Denies chest congestion, Denies cough, Denies dyspnea and Denies wheezing GI Denies abdominal pain, Denies bloating, Denies constipation, Denies dysphagia, Reports heartburn (recurrent), Denies diarrhea, Denies nausea, Denies odynophagia and Denies vomiting Denies hematuria, Denies difficulty urinating, Reports erectile dysfunction, Denies dysuria, Denies urinary frequency and Denies urinary urgency Musc Details: (+) left heel pain Denies back pain, Denies arthralgias, Denies joint swelling, Denies muscle weakness and Denies neck pain Skin/Breast Denies change in pigmentation, Reports lesions ((+) hyperpigmented lesion/patch over the parietal scalp), Denies rash and Denies unusual bruising Neuro Denies dizziness, Denies headache(s), Denies paresthesias and Denies weakness Endo Denies fatigue and Denies palpitations Aller/Immun Denies itchy eyes and Denies wheezing Physical exam (Primary Care) Vital Signs: Last Vital Signs Pulse 68 03/14/24 14:21 BP 136/80 03/14/24 14:21 Pulse Ox 97 03/14/24 14:21 Oxygen Delivery Method Room Air 03/14/24 14:21 BMI result Body Mass Index 27.9 Tobacco/Smoking Status: Tobacco use Status Tobacco use date assessed 09/10/23 03/14/24 14:26 Patient Tobacco Use Status Never used Tobacco 03/14/24 14:26 e-Cigarette/Vaping Use Never Used 03/14/24 14:26 PHQ-9: PHQ-9 Score PHQ-9: Total score 0 03/14/24 14:47 Depression Screening Interpretation: Negative Thrive Assessment: Date of Thrive Assessment Date Thrive assessed 03/07/24 03/14/24 14:26 Currently or been in a relationship where the following occur: No concerns reported Const General: no acute distress, alert and awake Orientation/consciousness: patient oriented x3 HENMT Head: Yes normocephalic and Yes atraumatic Ears: external ears normal, TM's normal bilaterally and EAC's normal General nose exam: No nasal discharge present Face and sinus: Yes normal facial exam and Yes sinuses nontender Teeth and gingiva: dentition normal Throat: Yes posterior oropharynx normal and Yes tonsils normal (no TP congestion) Eyes Eyelids: Yes eyelids normal Conjunctivae: conjunctivae normal Pupils: Equal, round and reactive pupils present EOM: EOMs intact bilaterally Neck Neck: Yes no lymphadenopathy and Yes supple Thyroid: Thyroid normal Resp Auscultation: clear to auscultation bilaterally, no rales and no wheezes Cardio Rate: regular rate Rhythm: regular rhythm Heart sounds: no murmurs GI Palpation (GI): Soft to palpation, nontender and No hepatosplenomegaly present Auscultation: normal bowel sounds General: Yes no CVA tenderness Back/Spine/Pelvis Back: no CVA tenderness Thoracic/Lumbar Spine: thoracic and lumbar spine normal to inspection Skin Lesions: lesion noted (hyperpigmented patch/lesion on the parietal scalp area) Rashes: no rashes Neuro General: patient oriented x3, moves all extremities, no focal motor deficits and CN's II-XI intact bilaterally Cranial nerves: Yes Equal, round and reactive pupils present Cognition (Neuro): normal cognition Gait exam (Neuro): Normal gait present Extrem General: Yes no clubbing, cyanosis or edema Left lower extremity: foot Details: tenderness Location: of the calcaneus Details: point tenderness Office Procedures Flu Questionnaire Does the patient have a severe egg allergy?: No Immunizations Fluarix Triv [id number] (PF) 45 mcg (15 mcg x 3)/0.5 mL IM syringe Performing Provider: Bakari Barbosa MD [facility] [place] Documented (not given) by: KRISHNA Edwards on 03/14/24 14:26 Reason Not Given: Patient Refused Results Reviewed Results Reviewed: Laboratory Tests 02/15/23 03/07/24 03/07/24 07:23 07:32 07:45 WBC 7.1 Hgb 15.9 Hct 45.6 Plt Count 218 Sodium 141 Potassium 4.1 Creatinine 0.99 Estimated GFR > 60 Fasting Glucose 97 Calcium 9.6 Total Bilirubin 1.6 H AST 24 ALT 23 Triglycerides 110 Cholesterol 175 LDL Cholesterol, Calc 115 H HDL Cholesterol 38 L Prostate Specific Ag 3.36 Vitamin B12 387 25-OH Vitamin D Total 85.7 TSH 2.61 Urine pH 5.5 Ur Specific [place] 1.020 Urine Protein Negative Urine Glucose (UA) Negative Urine Blood Negative Urine Nitrite Negative Ur Leukocyte Esterase Negative Coding Level of Care Code Est Pt Prev Care 40-64y(38514) Diagnoses Annual physical exam Z00.00 Essential hypertension I10 Pure hypercholesterolemia E78.00 GERD without esophagitis K21.9 Elevated bilirubin R17 Elevated PSA, less than 10 ng/ml R97.20 Pain of left heel M79.672 Allergic rhinitis, unspecified seasonality, unspecified trigger J30.9 Allergic rhinitis trigger: unspecified Allergic rhinitis seasonality: unspecified Erectile dysfunction, unspecified erectile dysfunction type N52.9 Erectile dysfunction type: unspecified Hyperpigmented skin lesion L81.9 Overweight (BMI 25.0-29.9) E66.3 Colon cancer screening Z12.11 Assessment & Plan Assessment & Plan (1) Annual physical exam: Code(s): Z00.00 - Encounter for general adult medical examination without abnormal findings Category: Medical Plan: Results of his labs done last week reviewed and discussed with patient He is due for screening colonoscopy - has never had one done in the past (2) Essential hypertension: Code(s): I10 - Essential (primary) hypertension Category: Medical Plan: Reinforced low sodium diet - goal is systolic BP of 120 mm or less Continue Atenolol 25 mg QD Patient is reminded to continue monitoring his blood pressure regularly (3) Pure hypercholesterolemia: Code(s): E78.00 - Pure hypercholesterolemia, unspecified Category: Medical Plan: His LDL cholesterol was elevated at 137 mg/dl when last checked about a year ago in February 2023 Reinforced low cholesterol diet Will recheck his labs and fasting lipids for follow up (4) GERD without esophagitis: Code(s): K21.9 - Gastro-esophageal reflux disease without esophagitis Category: Medical Plan: Dietary restrictions reinforced Will start him (back) on Omeprazole 20 mg QD (5) Elevated bilirubin: Comment: (+) elevated total bilirubin level as far back as 2003 Code(s): R17 - Unspecified jaundice Category: Medical Plan: His serum bilirubin level is again elevated on his recent labs - he's had elevated bilirubin level as far back as 2003 Direct bilirubin level is normal He is advised that 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 has Gilbert's syndrome, which is a benign condition with no further intervention required Will consider sending him for abdominal US for further evaluation - can order this next year when he returns for his next annual PE as he has several work ups ordered now and patient would like to hold off on adding any further testing at this time (6) Elevated PSA, less than 10 ng/ml: Code(s): R97.20 - Elevated prostate specific antigen [PSA] Category: Medical Plan: He is advised that a PSA level of 3.36, although it is technically still within normal range, is high for his age, and this should be evaluated further Will refer him to urology for further evaluation and management (7) Pain of left heel: Code(s): M79.672 - Pain in left foot Category: Medical Plan: Discussed that his foot/heel pain is likely due to calcaneal spur(s) or plantar fasciitis Will send him for x-rays of the left foot/heel for further evaluation Will also refer him to podiatry for further evaluation and management (8) Allergic rhinitis: Code(s): J30.9 - Allergic rhinitis, unspecified Category: Medical Qualifiers: Allergic rhinitis trigger: unspecified Allergic rhinitis seasonality: unspecified Qualified Code(s): J30.9 - Allergic rhinitis, unspecified Plan: Per request, will start him on Susana-D 60 mg QD-BID PRN (Rx sent) (9) Erectile dysfunction: Code(s): N52.9 - Male erectile dysfunction, unspecified Category: Medical Qualifiers: Erectile dysfunction type: unspecified Qualified Code(s): N52.9 - Male erectile dysfunction, unspecified Plan: Continue Tadalafil 5 mg QD PRN (10) Hyperpigmented skin lesion: Comment: on the parietal scalp area Code(s): L81.9 - Disorder of pigmentation, unspecified Category: Medical Plan: Will refer him to dermatology for further evaluation and management (11) Overweight (BMI 25.0-29.9): Code(s): E66.3 - Overweight Category: Medical Plan: Reinforced diet/exercise as tolerated/lose weight (12) Colon cancer screening: Code(s): Z12.11 - Encounter for screening for malignant neoplasm of colon Category: Medical Plan: Patient declined referral for screening colonoscopy; would like to try getting Cologuard testing done instead for now Cologuard ordered Plan To return in 1 year for his next annual physical examination Orders: Orders Influenza [id number] Immunization 03/14/24 Z23 - Encounter for immunization Complete Blood Count Auto Diff 1 Year D64.9 - Anemia, unspecified TSH reflex Free T4 1 Year E78.00 - Pure hypercholesterolemia, unspecified, Z00.00 - Encounter for general adult medical examination without abnormal findings Vitamin D 25-OH Total 1 Year E55.9 - Vitamin D deficiency, unspecified, Z00.00 - Encounter for general adult medical examination without abnormal findings Testosterone, Free/Total 1 Year N52.9 - Male erectile dysfunction, unspecified, R79.89 - Other specified abnormal findings of blood chemistry, Z00.00 - Encounter for general adult medical examination without abnormal findings XR foot LT min 3V 03/16/24 M79.672 - Pain in left foot Comprehensive [place]. Panel Fast 1 Year E78.00 - Pure hypercholesterolemia, unspecified Lipid Panel 1 Year E78.00 - Pure hypercholesterolemia, unspecified UA CC w/rflx Micro + Cult 1 Year R30.0 - Dysuria, Z00.00 - Encounter for general adult medical examination without abnormal findings Referrals Dermatology Referral L81.9 - Disorder of pigmentation, unspecified Urology Referral R97.20 - Elevated prostate specific antigen [PSA] Podiatry Referral M79.672 - Pain in left foot Cologuard Test Z12.11 - Encounter for screening for malignant neoplasm of colon Medications: New fexofenadine-pseudoephedrine 60-120 mg ER 1 tab PO Q12H 90 days PRN 90 tabs 3RF allergy symptoms J30.9 - Allergic rhinitis, unspecified omeprazole 20 mg PO DAILY 90 days 90 caps 3RF acid reflux K21.9 - Gastro-esophageal reflux disease without esophagitis
== END 2024-03-14 15:15 | disposition home or self-care (01) ==
LOC: HO.HMCH 14:05
PROVIDERS: PCP Internal Medicine; Visit Provider Internal Medicine
DX: Z00.00 Encounter for general adult medical examination without abnormal findings (principal); I10 Essential (primary) hypertension; E78.00 Pure hypercholesterolemia, unspecified; K21.9 Gastro-esophageal reflux disease without esophagitis; R17 Unspecified jaundice; R97.20 Elevated prostate specific antigen [PSA]; M79.672 Pain in left foot; J30.9 Allergic rhinitis, unspecified; N52.9 Male erectile dysfunction, unspecified; L81.9 Disorder of pigmentation, unspecified; E66.3 Overweight; Z12.11 Encounter for screening for malignant neoplasm of colon

== ENCOUNTER → 2024-03-14 14:04 | Outpatient (BNVA) | payer BC, SELFPAY | PROVIDERS: PCP Internal Medicine; Visit Provider Internal Medicine | DX: Z00.01 Encounter for general adult medical examination with abnormal findings (principal); I10 Essential (primary) hypertension; E78.00 Pure hypercholesterolemia, unspecified; K21.9 Gastro-esophageal reflux disease without esophagitis; R17 Unspecified jaundice; R97.20 Elevated prostate specific antigen [PSA]; M79.672 Pain in left foot; J30.9 Allergic rhinitis, unspecified; N52.9 Male erectile dysfunction, unspecified; L81.9 Disorder of pigmentation, unspecified; E66.3 Overweight; Z79.899 Other long term (current) drug therapy; Z28.21 Immunization not carried out because of patient refusal | CPT/HCPCS: 90471; 96127 ==

== ENCOUNTER 2024-03-16 14:12 | Outpatient (REF) | payer BC, SELFPAY | END 2024-03-16 14:13 | disposition home or self-care (01) | LOC: HO.XRAY 14:12 | PROVIDERS: PCP Internal Medicine; Visit Provider Internal Medicine | DX: M79.672 Pain in left foot (principal) | CPT/HCPCS: 73630 ==

== ENCOUNTER 2024-05-16 08:45 | Outpatient (AMB) | payer BC, SELFPAY ==
--- NOTE | 2024-05-16 09:11 | A.OFFVIS_ITS ---
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 Barbosa. He has a past medical history of GERD, ED, elevated bilirubin, hypercholesteremia, and hypertension. He presents to the office today as a new patient for an elevated PSA. In discussion with the patient today reports having had annual blood work with his PCP at which time PSA was noted to be elevated and recommendations were made for urology referral for further assessment evaluation. PSAs are as follows 03/08 4.2, 04/08 3.4, 03/09 3.4 When asked he denies any known family history of prostate cancer. He denies any bothersome urinary issues or concerns. He denies urinary urgency, urinary frequency, incontinence, nocturia, hematuria, dysuria, foul smelling urine, changes to urinary stream, flank pain, fever, and or chills. He is happy with his current voiding parameters. In office urinalysis results reviewed with the patient today. We discussed at length potential causes of elevated PSA. Patient reports having done his own research and believes elevated PSA was due to sexual intercourse he had morning of lab work. We discussed obtaining retroperitoneal ultrasound for further assessment evaluation as well as surveillance monitoring of PSA. He discusses his reluctancy in doing so as he does not like to seek medical treatment and feels no bothersome issues or concerns at this time. Patient reports previously having JACKLYN with PCP. He otherwise offers no other issues or concerns at this time. [facility] Medical History GERD without esophagitis Overweight (BMI 25.0-29.9) Erectile dysfunction Elevated bilirubin Pure hypercholesterolemia Essential hypertension Surgical History H/O vasectomy History of hernia surgery H/O elbow surgery Family History Mother No problems noted. Father No problems noted. Social History Housing: House Alcohol intake: current Alcohol intake frequency: a few times a month Patient Tobacco Use Status: Never used Tobacco e-Cigarette/Vaping Use: Never Used Second Hand Smoke Exposure: No service: No Current occupational status: employed Cognitive needs: No Hearing needs: No Vision needs: Yes (Glasses) Review of Systems Const All systems reviewed & are unremarkable except as noted in HPI and below Physical Exam Const General: cooperative, healthy appearing, comfortable, no acute distress, well developed, alert and awake Orientation/consciousness: patient oriented x3 Limitations: no limitations HEENT Head: Yes normal to inspection, Yes normocephalic and Yes atraumatic Ears: hearing grossly normal bilaterally Eyes General: appearance normal, both eyes and all related structures Neck Neck: Yes normal visual inspection and Yes trachea midline Chest Chest palpation & inspection: normal inspection of the chest Resp Effort & Inspection: normal respiratory effort and able to speak in complete sentences Cardio Rate: regular rate GI Inspection: Yes normal to inspection General: Yes no CVA tenderness Back/Spine/Pelvis Back: no CVA tenderness Skin General skin exam: no rashes or lesions noted Neuro General: patient oriented x3 Extrem General: Yes normal to inspection Psych Appearance: grossly normal and well kempt Mental Status: mental status grossly normal Speech and movement: Normal speech and movement present and Clear speech present Affect: normal affect Attitude: cooperative Thought process: Normal thought process present Thought content: Normal thought content present Insight: Fair insight present (Psych) Judgement: Fair judgement present (Psych) Results AMB Urinalysis, Automated UA Leukoctes 0 Ene/uL Last Edit by Zaid Reyes on 05/16/24 09:33 UA Nitrite Last Edit by Zaid Reyes on 05/16/24 09:33 UA Urobilinogen 0.2 mg/dL Last Edit by Zaid Reyes on 05/16/24 09:33 UA Protein 0 mg/dL Last Edit by Zaid Reyes on 05/16/24 09:33 UA pH 7.0 Last Edit by Zaid Reyes on 05/16/24 09:33 UA Blood 0 Oswaldo/uL Last Edit by Zaid Reyes on 05/16/24 09:33 UA Specific [place] 1.015 Last Edit by Zaid Reyes on 05/16/24 09:33 UA Ketone Negative Last Edit by Zaid Reyes on 05/16/24 09:33 UA Bilirubin 0 mg/dL Last Edit by Zaid Reyes on 05/16/24 09:33 UA Glucose 0 mg/dL Last Edit by Zaid Reyes on 05/16/24 09:33 Results Reviewed Results Reviewed: Laboratory Last Values Urine pH (Auto) 7.0 05/16/24 09:20 Specific [place] (Auto) 1.015 05/16/24 09:20 Urine Protein (Auto) 0 mg/dL 05/16/24 09:20 Glucose (UA)(Auto) 0 mg/dL 05/16/24 09:20 Urine Ketones (Auto) Negative 05/16/24 09:20 Urine Blood (Auto) 0 Oswaldo/uL 05/16/24 09:20 Urine Bilirubin (Auto) 0 mg/dL 05/16/24 09:20 Urine Urobilinogen (Auto) 0.2 mg/dL 05/16/24 09:20 Leukocyte Esterase (Auto) 0 Ene/uL 05/16/24 09:20 Assessment & Plan Assessment & Plan (1) Elevated PSA, less than 10 ng/ml: Code(s): R97.20 - Elevated prostate specific antigen [PSA] Category: Medical (2) Elevated PSA: Code(s): R97.20 - Elevated prostate specific antigen [PSA] Category: Medical Plan In office urinalysis results reviewed with the patient today; as noted above. Previous PSA results reviewed with the patient today; as noted above. We discussed at length potential causes of elevated PSA as well as further workup in risks and benefits of these interventions. Patient currently denies any bothersome urinary issues or concerns. He reports be happy with current voiding parameters. Will obtain retroperitoneal ultrasound Will obtain redraw of PSA Follow-up in 4 months with imaging and labs to be completed prior; or sooner with any issues, concerns, and or questions. Orders: Orders AMB Urinalysis Automated 05/16/24 Z13.9 - Encounter for screening, unspecified US retroperitoneal comp Today N40.0 - Benign prostatic hyperplasia without lower urinary tract symptoms, R97.20 - Elevated prostate specific antigen [PSA] PSA,Total (Free>4and<10) 3 Months R97.20 - Elevated prostate specific antigen [PSA] Patient Instructions: The patient had an opportunity to ask questions regarding the treatment plan. All questions were answered. Physical exam, labs, and imaging were discussed and reviewed in detail. As well as risks, benefits, and discussion of treatment choices. No major barriers to understanding were identified. The patient expressed understanding and agreement with the above treatment plan. The patient was made aware they should contact our office by phone for worsening of their current condition, the appearance of new symptoms, or with any questions or concerns. Compliance is encouraged with any medications and follow up testing that is ordered. It is a privilege to be allowed the opportunity to participate in? your urological care.? Again, if you have any questions or concerns If you have any questions or concerns please do not hesitate to contact me. The office is [phone]. This note is constructed using voice recognition software. While every effort has been made to ensure accuracy motorcycle technician errors may have been included. Yours sincerely, JOEL Sndyer Coding Level of Care Code New Pt Level 3 (04154) Diagnoses Elevated PSA, less than 10 ng/ml R97.20 Elevated PSA R97.20
== END 2024-05-16 10:15 | disposition home or self-care (01) ==
PROVIDERS: PCP Internal Medicine; Visit Provider Nurse Practitioner Family
DX: R97.20 Elevated prostate specific antigen [PSA] (principal)
CPT/HCPCS: 99203

== ENCOUNTER → 2024-05-16 08:45 | Outpatient (BNVA) | payer BC, SELFPAY | PROVIDERS: PCP Internal Medicine; Visit Provider Nurse Practitioner Family | DX: R97.20 Elevated prostate specific antigen [PSA] (principal) | CPT/HCPCS: 81003 ==

== ENCOUNTER 2024-08-24 09:45 | Outpatient (REF) | payer OTHER, SELFPAY ==
--- NOTE | ~2024-08-24 | US_ITS ---
EXAMINATION: US RETROPERITONEUM HISTORY: R97.20 - Elevated prostate specific antigen [PSA] TECHNIQUE: Real-time grayscale ultrasound imaging of the kidneys was performed and images were reviewed. COMPARISON: There are no prior studies for comparison. FINDINGS: Right kidney: The right kidney measures 11.7 x 6.4 x 5.0 cm. Renal parenchymal echotexture and thickness are normal. There are no masses. There is no hydronephrosis or renal calculi. Left Kidney: The left kidney measures 10.6 x 6.4 x 4.3 cm. Renal parenchymal echotexture and thickness are normal. There are no masses. There is no hydronephrosis or renal calculi. The urinary bladder is unremarkable. Bilateral ureteral jets are identified. Before voiding, the urinary bladder measured 16.4 x 7.6 x 8.7 cm, for an estimated volume of 564 mL. After voiding, the urinary bladder measured 9.9 x 5.6 x 5.7 cm, for an estimated volume of 165 mL. The prostate measures 2.6 x 3.6 x 3.6 cm. US/US retroperitoneal comp IMPRESSION: Unremarkable renal and bladder ultrasound. Post void bladder residual of 165 mL. Electronically signed by: Morgan Shaw MD 08/24/2024 10:36 AM EDT
== END 2024-08-24 09:46 | disposition home or self-care (01) ==
LOC: HO.US 09:45
PROVIDERS: PCP Internal Medicine; Visit Provider Nurse Practitioner Family
DX: N40.0 Benign prostatic hyperplasia without lower urinary tract symptoms (principal); R97.20 Elevated prostate specific antigen [PSA]
CPT/HCPCS: 76770

== ENCOUNTER → 2024-08-24 09:47 | Outpatient (BNV) | payer OTHER, SELFPAY | PROVIDERS: PCP Internal Medicine; Visit Provider Radiology Diagnostic Radiology | DX: R97.20 Elevated prostate specific antigen [PSA] (principal) | CPT/HCPCS: 76770 ==

== ENCOUNTER 2024-09-08 07:30 | Outpatient (REF) | payer OTHER, SELFPAY ==
[2024-09-08 09:12] LABS: PSA,Total (Free>4and<10) 3.27 ng/mL (0.00-4.00)
== END 2024-09-08 07:31 | disposition home or self-care (01) ==
LOC: HO.LAB 07:30
PROVIDERS: PCP Internal Medicine; Visit Provider Nurse Practitioner Family
DX: R97.20 Elevated prostate specific antigen [PSA] (principal); Z12.5 Encounter for screening for malignant neoplasm of prostate
CPT/HCPCS: 36415; 84153

== ENCOUNTER 2024-09-13 07:37 | Outpatient (AMB) | payer OTHER, SELFPAY ==
--- NOTE | 2024-09-13 07:40 | MHC.OFFVIS ---
Intake Visit Reasons: 4M follow up US/ PSA Intake Note: Patient presents today for follow up on: Elevated PSA Urology Medications: tadalafil Blood Thinner: none PSA: 3.27 Imaging Completed:08/24/24 Aluminizer Required: No Accompanied by: Self / Same As Patient Allergies hydrochlorothiazide Adverse Reaction (Intermediate, Verified 09/13/24 07:40) Dizziness lisinopril Adverse Reaction (Intermediate, Verified 09/13/24 07:40) dizziness HPI Comments Details: Jimi is a very pleasant 58-year-old male patient of Dr. Barbosa. He has a past medical history of GERD, ED, elevated bilirubin, hypercholesteremia, and hypertension. He presents to the office today for follow-up. Of note, patient was seen approximately 4 months ago as a new patient for an elevated PSA at which time a retroperitoneal ultrasound and redraw of PSA were ordered for further assessment evaluation. These results were reviewed and communicated with the patient today. 09/08 bilateral kidneys with no calculi, lesions, and or hydronephrosis. The prostate measures approximately 19 mL. Pre void bladder volume is a proximally 565 mL. Postvoid bladder volume is approximately 165 mL. PSAs are as follows: 03/08 4.2, 04/08 3.4, 03/09 3.4, 09/08 3.3 We discussed stability in PSA over the last 6 months. We discussed potential causes of elevated PSA. He denies any known family history of prostate cancer. He denies any bothersome urinary issues or concerns. He denies urinary urgency, urinary frequency, incontinence, nocturia, hematuria, dysuria, foul smelling urine, changes to urinary stream, flank pain, fever, and or chills. He is happy with his current voiding parameters. In office urinalysis results reviewed with the patient today. Patient reports previously having JACKLYN with PCP. He otherwise offers no other issues or concerns at this time. Plan The management plan involves maintaining careful surveillance of the patient's benign prostatic hyperplasia with elevated PSA. Monitoring PSA levels biannually at this time will ensure early detection of any deviation, promoting timely intervention if required. The patient?s current medication, tadalafil, will remain in use given its efficacy in symptom management, with no immediate adjustments foreseen. Additional imaging or diagnostics will follow only if symptoms suggest a shift in clinical status. We will consider transitioning to annual reviews should PSA levels confirm consistent stability over the next assessments. Patient was informed and verbally consented to the use of an ambient scribe for clinic note documentation during this visit. Discussion Notes During the consultation, I reviewed the patient's PSA levels and the outcome of retroperitoneal ultrasound. I reiterated the stability observed since the prior evaluations and the rationale behind frequent monitoring as a preventative measure to detect early changes. We explored tadalafil treatment, noting its success in alleviating symptoms, with consideration for continued use. I highlighted the importance of vigilance towards any new symptoms and reassured the patient that current findings indicate no immediate concerns. The patient gave consent to the plan and acknowledged understanding while agreeing to reach out should there be changes in symptoms or discomfort. [facility] Medical History GERD without esophagitis Overweight (BMI 25.0-29.9) Erectile dysfunction Elevated bilirubin Pure hypercholesterolemia Essential hypertension Surgical History H/O vasectomy History of hernia surgery H/O elbow surgery Family History Mother No problems noted. Father No problems noted. Social History Housing: House Alcohol intake: current Alcohol intake frequency: a few times a month Patient Tobacco Use Status: Never used Tobacco e-Cigarette/Vaping Use: Never Used Second Hand Smoke Exposure: No service: No Current occupational status: employed Cognitive needs: No Hearing needs: No Vision needs: Yes (Glasses) Review of Systems Const All systems reviewed & are unremarkable except as noted in HPI and below Physical Exam Const General: cooperative, healthy appearing, comfortable, no acute distress, well developed, alert and awake Orientation/consciousness: patient oriented x3 Limitations: no limitations HEENT Head: Yes normal to inspection, Yes normocephalic and Yes atraumatic Ears: hearing grossly normal bilaterally Eyes General: appearance normal, both eyes and all related structures Neck Neck: Yes normal visual inspection and Yes trachea midline Chest Chest palpation & inspection: normal inspection of the chest Resp Effort & Inspection: normal respiratory effort and able to speak in complete sentences Cardio Rate: regular rate GI Inspection: Yes normal to inspection General: Yes no CVA tenderness Back/Spine/Pelvis Back: no CVA tenderness Skin General skin exam: no rashes or lesions noted Neuro General: patient oriented x3 Extrem General: Yes normal to inspection Psych Appearance: grossly normal and well kempt Mental Status: mental status grossly normal Speech and movement: Normal speech and movement present and Clear speech present Affect: normal affect Attitude: cooperative Thought process: Normal thought process present Thought content: Normal thought content present Insight: Fair insight present (Psych) Judgement: Fair judgement present (Psych) Results AMB Urinalysis, Automated UA Leukoctes 15 Ene/uL Last Edit by [employer] on 09/13/24 07:56 UA Nitrite Last Edit by [employer] on 09/13/24 07:56 UA Urobilinogen 0.2 mg/dL Last Edit by [employer] on 09/13/24 07:56 UA Protein 0 mg/dL Last Edit by [employer] on 09/13/24 07:56 UA pH 6.0 Last Edit by [employer] on 09/13/24 07:56 UA Blood 0 Oswaldo/uL Last Edit by [employer] on 09/13/24 07:56 UA Specific [place] 1.015 Last Edit by [employer] on 09/13/24 07:56 UA Ketone Last Edit by [employer] on 09/13/24 07:56 UA Bilirubin 0 mg/dL Last Edit by [employer] on 09/13/24 07:56 UA Glucose 0 mg/dL Last Edit by [employer] on 09/13/24 07:56 Results Reviewed Results Reviewed: Laboratory Last Values Urine pH (Auto) 6.0 09/13/24 07:41 Specific [place] (Auto) 1.015 09/13/24 07:41 Urine Protein (Auto) 0 mg/dL 09/13/24 07:41 Glucose (UA)(Auto) 0 mg/dL 09/13/24 07:41 Urine Blood (Auto) 0 Oswaldo/uL 09/13/24 07:41 Urine Bilirubin (Auto) 0 mg/dL 09/13/24 07:41 Urine Urobilinogen (Auto) 0.2 mg/dL 09/13/24 07:41 Leukocyte Esterase (Auto) 15 Ene/uL 09/13/24 07:41 Date of Service: 08/24/24 Procedure(s): US retroperitoneal comp FINDINGS: Right kidney: The right kidney measures 11.7 x 6.4 x 5.0 cm. Renal parenchymal echotexture and thickness are normal. There are no masses. There is no hydronephrosis or renal calculi. Left Kidney: The left kidney measures 10.6 x 6.4 x 4.3 cm. Renal parenchymal echotexture and thickness are normal. There are no masses. There is no hydronephrosis or renal calculi. The urinary bladder is unremarkable. Bilateral ureteral jets are identified. Before voiding, the urinary bladder measured 16.4 x 7.6 x 8.7 cm, for an estimated volume of 564 mL. After voiding, the urinary bladder measured 9.9 x 5.6 x 5.7 cm, for an estimated volume of 165 mL. The prostate measures 2.6 x 3.6 x 3.6 cm. IMPRESSION: Unremarkable renal and bladder ultrasound. Post void bladder residual of 165 mL. Assessment & Plan Assessment & Plan (1) Elevated PSA: Code(s): R97.20 - Elevated prostate specific antigen [PSA] Category: Medical Plan In office urinalysis results with the patient today; as noted above. Recent PSA results reviewed with the patient today; as noted above. Recent retroperitoneal ultrasound results reviewed with the patient today; as noted above. We discussed potential causes of elevated PSA; as noted above. Will continue with surveillance monitoring. Patient currently denies any bothersome urinary issues or concerns. He reports be happy with current voiding parameters. Continue tadalafil as needed Will obtain PSA in 6 months. Follow-up in 6 months with PSA; or sooner with any issues, concerns, and or questions. Orders: Orders Prostate Specific Antigen 6 Months R97.20 - Elevated prostate specific antigen [PSA] AMB Urinalysis Automated Today Z13.9 - Encounter for screening, unspecified Patient Instructions: The patient had an opportunity to ask questions regarding the treatment plan. All questions were answered. Physical exam, labs, and imaging were discussed and reviewed in detail. As well as risks, benefits, and discussion of treatment choices. No major barriers to understanding were identified. The patient expressed understanding and agreement with the above treatment plan. The patient was made aware they should contact our office by phone for worsening of their current condition, the appearance of new symptoms, or with any questions or concerns. Compliance is encouraged with any medications and follow up testing that is ordered. It is a privilege to be allowed the opportunity to participate in? your urological care.? Again, if you have any questions or concerns If you have any questions or concerns please do not hesitate to contact me. The office is [phone]. This note is constructed using voice recognition software. While every effort has been made to ensure accuracy roll up machine operator errors may have been included. Yours sincerely, JOEL Snyder Coding Level of Care Code Est Pt Level 3 (81133) Diagnoses Elevated PSA R97.20
== END 2024-09-13 08:15 | disposition home or self-care (01) ==
LOC: HO.HUSH 07:38
PROVIDERS: PCP Internal Medicine; Visit Provider Nurse Practitioner Family
DX: R97.20 Elevated prostate specific antigen [PSA] (principal); Z13.9 Encounter for screening, unspecified
CPT/HCPCS: 99213

== ENCOUNTER → 2024-09-13 07:37 | Outpatient (BNVA) | payer OTHER, SELFPAY | PROVIDERS: PCP Internal Medicine; Visit Provider Nurse Practitioner Family | DX: R97.20 Elevated prostate specific antigen [PSA] (principal) | CPT/HCPCS: 81003 ==

== ENCOUNTER 2025-03-09 06:56 | Outpatient (REF) | payer OTHER, SELFPAY ==
--- OUTSIDE RECORDS SUMMARY | 2025-03-09 06:58 | XMS_ITS ---
Author Organization Unknown ENCOUNTERS Encounter Performer Location Date Diagnosis Diagnosis Status Outpatient [address] [id number] [id number] [facility] Out[facility] [address] [id number] [facility] *Note: Encounters from your own facility or health system may be excluded. Allergies, Adverse Reactions, Alerts Allergen Type Severity Identification Date Medications Name Date Quantity Days Supplied GPI Number
[2025-03-09 07:10] LABS: MANUAL DIFF FLAG NO
[2025-03-09 07:30] LABS: Hematocrit 44.2 % (42.0-52.0); Hemoglobin 15.2 g/dl (14.0-18.0); Imm Gran Abs Auto 0.01 X10*3/uL (0.00-0.03); Imm Gran Pct Auto 0.1 % (0.0-0.4); Lymphocytes Absolute Auto 2.5 X10*3/uL (1.2-4.9); Mean Corpuscular HGB Conc 34.4 g/dl (31.0-36.0); Mean Corpuscular Hemoglobin 29.5 pg (27.0-33.0); Mean Corpuscular Volume 85.7 fL (80.0-98.0); NRBC Abs Auto 0.000 X10*3/uL (0.0-0.012); NRBC Pct Auto 0.0 /100WBC (0.0-0.2); Platelet Count 234 X10*3/uL (160-400); Red Blood Count 5.16 X10*6/uL (4.60-5.80); White Blood Count 7.8 X10*3/uL (4.8-10.8)
[2025-03-09 07:35] LABS: Appearance Urine Clear; Glucose Urine UA Negative (Negative); PH 5.5 (5.0-9.0); Specific Gravity - Urine 1.025 (1.005-1.025); UMIC TRIGGER UACC YES
[2025-03-09 08:15] LABS: Alanine Aminotransferase 21 U/L (0-40); Albumin Level 4.5 g/dL (3.5-5.0); Alkaline Phosphatase 54 U/L (39-117); Anion Gap 11 (12-20); Aspartate Amino Transferase 27 U/L (5-37); Blood Urea Nitrogen 13 mg/dL (9-16); Calcium 9.3 mg/dL (8.4-10.2); Carbon Dioxide 29 mmol/L (22-29); Chloride 107 mmol/L (96-108); Cholesterol 146 mg/dL (<200); Estimated Glomerular Filt Rate > 60; HDL Cholesterol 31 mg/dL (>40); Potassium 4.2 mmol/L (3.3-5.1); Sodium 143 mmol/L (135-145); Total Protein 6.6 g/dL (6.5-8.0); Triglycerides 82 mg/dL (<150)
[2025-03-09 08:46] LABS: Prostate Specific Antigen 3.04 ng/mL (<0.05-4.0)
== END 2025-03-09 06:57 | disposition home or self-care (01) ==
LOC: HO.LAB 06:56
PROVIDERS: Absent Provider Internal Medicine; PCP Internal Medicine; Visit Provider Nurse Practitioner Family
DX: Z00.00 Encounter for general adult medical examination without abnormal findings (principal); R79.89 Other specified abnormal findings of blood chemistry; N52.9 Male erectile dysfunction, unspecified; E78.00 Pure hypercholesterolemia, unspecified; E55.9 Vitamin D deficiency, unspecified; R97.20 Elevated prostate specific antigen [PSA]; D64.9 Anemia, unspecified; Z12.5 Encounter for screening for malignant neoplasm of prostate
CPT/HCPCS: 36415; 80053; 80061; 81001; 82306; 84153; 84402; 84403; 84443; 85025

== ENCOUNTER 2025-03-14 14:18 | Outpatient (AMB) | payer OTHER, SELFPAY ==
[2025-03-14 14:28] VITALS: BP 146/70; PULSE 83; RESP 18; TEMP 36.2; O2SAT 99; BMI 27.9
--- NOTE | 2025-03-14 14:28 | A.OFFPC_ITS ---
Vital Signs 03/14/25 14:28 03/14/25 15:00 Height 5 ft 6 in Weight 173 lb BMI 27.9 BP 146/70 H 138/82 Blood Pressure Location Lt brachial Lt brachial Position Sitting Sitting Respiration 18 Pulse 83 Pulse Source Pulse Oximeter Temp 97.1 F Temp Source Temporal Artery Scan Pulse Oximetry (%) 99 Oxygen Delivery Method Room Air Intake Visit Reasons: annual exam Clinical Resource Director Required: No Accompanied by: Self / Same As Patient Allergies hydrochlorothiazide Adverse Reaction (Intermediate, Verified 03/15/25 09:19) Dizziness lisinopril Adverse Reaction (Intermediate, Verified 03/15/25 09:19) dizziness Medication List - Last Reconciled 03/14/25 by ESTEFANÍA Tay atenolol 25 mg PO DAILY 90 days fexofenadine-pseudoephedrine 60-120 mg ER 1 tab PO Q12H PRN 90 days omeprazole 20 mg PO DAILY 90 days tadalafil 5 mg PO DAILY 30 days Tobacco use date assessed: 03/14/25 Dental Screening Dental Screen Date: 03/14/25 Did you have a dental visit in the last 12 months?: No Did you have a dental problem in the last 6 months where you did not have access to dental care?: No Was dental information given to patient?: No HPI annual exam HPI Details Dentist: been a while Eye: up to date Snellen: Right: Left: Corrected vision: yes, glasses STI screening: Colonoscopy: cologuard last year Pap Smer:n/a PHQ-9: Flu: no COVID: x 2 Tdap: 2014 Diet:regular Exercise:works out at home The patient is a 59-year-old male presenting for an annual physical exam. A review of recent lab work revealed that his cholesterol and PSA levels have decreased, with the patient noting he is not on any cholesterol medications. His testosterone lab result is still pending. Regarding preventative screenings, the patient completed a Cologuard test last year, though he is unsure of the result. He has not been to the dentist in a while and his last eye exam was over a year ago. The patient reports specialist referrals from last year, including one to a urologist whom he will see tomorrow. He was also referred to dermatology and had benign age spots removed from his head. A podiatry referral for foot and ankle pain was not followed up on, as he found a stretching technique that alleviated the pain. The patient's last tetanus shot was in 2015. He reports having received two COVID-19 vaccines, which were mandated by his employer, and describes a severe reaction to the first dose that involved his face turning red, nearly passing out, and experiencing temporary hearing and vision loss, followed by flu-like symptoms. He has never had a flu vaccine and declines it. [facility] Medical History GERD without esophagitis Overweight (BMI 25.0-29.9) Erectile dysfunction Elevated bilirubin Pure hypercholesterolemia Essential hypertension Surgical History H/O vasectomy History of hernia surgery H/O elbow surgery Family History Mother No problems noted. Father No problems noted. Social History Housing: House Alcohol intake: current Alcohol intake frequency: a few times a month Patient Tobacco Use Status: Never used Tobacco e-Cigarette/Vaping Use: Never Used Second Hand Smoke Exposure: No service: No Current occupational status: employed Cognitive needs: No Hearing needs: No Vision needs: Yes (Glasses) Questionnaire PHQ-9 Over the last 2 weeks, how often have you been bothered by any of the following problems? 1. Little interest or pleasure in doing things: not at all 2. Feeling down, depressed, or hopeless: not at all 3. Trouble falling or staying asleep, or sleeping too much: not at all 4. Feeling tired or having little energy: not at all 5. Poor appetite or overeating: not at all 6. Feeling bad about yourself - or that you are a failure or have let yourself or your family down: not at all 7. Trouble concentrating on things, such as reading the newspaper or watching television: not at all 8. Moving or speaking so slowly that other people could have noticed. Or the opposite - being so fidgety or restless that you have been moving around a lot more than usual: not at all 9. Thoughts that you would be better off or of hurting yourself in some way: not at all Total score: 0 Depression Screening Interpretation: Negative Depression Screening Done: Yes 47214 - PHQ-9 Billing: Yes Source: Developed by Drs. Morgan Buchanan, Brunilda Latham, Zeeshan Richard and colleagues, with an educational emiliano from [employer]. Thrive Questionnaire Date Thrive assessed: 03/07/24 I am a: Patient What is your living situation today?: I have a steady place to live Within the past 12 months, did the food you bought not last and you didn't have the money to get more?: Never true Within the past 12 months, did you worry whether your food would run out before you got money to buy more?: Never true Do you have trouble paying for medicines?: No Do you have trouble getting transportation to medical appointments?: No Do you have trouble paying your heating and electricity bill?: No Do you have trouble taking care of your child, family member or friend?: No Do you have trouble with day-to-day activities such as bathing, preparing meals, shopping, managing finances, etc.?: No Are you currently unemployed and looking for a job?: No Are you interested in more education?: No Please select the resources that you would like help with: None Currently or been in a relationship where the following occur: No concerns reported THRIVE Score: 0 AUDIT C Alcohol Use Questionnaire (AUDIT-C) 1. How often do you have a drink containing alcohol?: Monthly or less 2. How many drinks containing alcohol do you have on a typical day when you are drinking?: 3 or 4 3. How often do you have six or more drinks on one occasion?: Less than monthly Total Score: 3 Score Reviewed/Action Taken: No SHERRIE-7 AMB Questionnaire SHERRIE-7 Date SHERRIE - 7 assessed: 03/14/24 Feeling nervous, anxious, or on edge: 0 = Not at all Not being able to stop or control worryin = Not at all Worrying too much about different things: 0 = Not at all Trouble relaxin = Not at all Being so restless that it is hard to sit still: 0 = Not at all Becoming easily annoyed or irritable: 0 = Not at all Feeling afraid as if something awful might happen: 0 = Not at all Total SHERRIE-7 score (0-4 normal; 5-9 mild; 10-14 moderate; 15-21 severe): 0 Source: Developed by Drs. Morgan Buchanan, Brunilda Latham, Zeeshan Richard and colleagues, with an educational emiliano from [employer]. SHERRIE-7 Assessment Billing SHERRIE-7 Assessment Tool: SHERRIE-7 Assessment 42952 Review of Systems Const Denies chills, Denies fatigue, Denies fever(s), Denies headache(s), Denies malaise and Denies weakness Eyes Denies blurry vision, Denies change in vision, Denies irritation and Denies itchy eyes ENT Denies dysphagia, Denies dizziness, Denies otalgia, Denies headache(s), Reports nasal congestion (recurrent - due to allergies), Denies neck pain, Denies odynophagia and Denies sore throat Card Denies chest pain, Denies rapid heart rate, Denies irregular heart rhythm, Denies palpitations and Denies dyspnea Resp Denies chest congestion, Denies cough, Denies dyspnea and Denies wheezing GI Denies abdominal pain, Denies bloating, Denies constipation, Denies dysphagia, Reports heartburn (recurrent), Denies diarrhea, Denies nausea, Denies odynophagia and Denies vomiting Denies hematuria, Denies difficulty urinating, Reports erectile dysfunction, Denies dysuria, Denies urinary frequency and Denies urinary urgency Musc Details: (+) left heel pain Denies back pain, Denies arthralgias, Denies joint swelling, Denies muscle weakness and Denies neck pain Skin/Breast Denies change in pigmentation, Denies rash and Denies unusual bruising Neuro Denies dizziness, Denies headache(s), Denies paresthesias and Denies weakness Endo Denies fatigue and Denies palpitations Aller/Immun Denies itchy eyes and Denies wheezing Physical exam (Primary Care) Vital Signs: Last Vital Signs Temp 97.1 F 03/14/25 14:28 Pulse 83 03/14/25 14:28 Resp 18 03/14/25 14:28 BP 138/82 03/14/25 15:00 Pulse Ox 99 03/14/25 14:28 Oxygen Delivery Method Room Air 03/14/25 14:28 BMI result Body Mass Index 27.9 Tobacco/Smoking Status: Tobacco use Status Tobacco use date assessed 03/14/25 03/14/25 14:30 Patient Tobacco Use Status Never used Tobacco 03/14/25 14:30 e-Cigarette/Vaping Use Never Used 03/14/25 14:30 PHQ-9: PHQ-9 Score PHQ-9: Total score 0 03/14/25 15:05 Depression Screening Interpretation: Negative Thrive Assessment: Date of Thrive Assessment Date Thrive assessed 03/07/24 03/14/25 14:30 Currently or been in a relationship where the following occur: No concerns reported Const General: no acute distress, alert and awake Orientation/consciousness: patient oriented x3 HENMT Head: Yes normocephalic and Yes atraumatic Ears: external ears normal, TM's normal bilaterally and EAC's normal General nose exam: No nasal discharge present Face and sinus: Yes normal facial exam and Yes sinuses nontender Teeth and gingiva: dentition normal Throat: Yes posterior oropharynx normal and Yes tonsils normal (no TP congestion) Eyes Eyelids: Yes eyelids normal Conjunctivae: conjunctivae normal Pupils: Equal, round and reactive pupils present EOM: EOMs intact bilaterally Neck Neck: Yes no lymphadenopathy and Yes supple Thyroid: Thyroid normal Resp Auscultation: clear to auscultation bilaterally, no rales and no wheezes Cardio Rate: regular rate Rhythm: regular rhythm Heart sounds: no murmurs GI Palpation (GI): Soft to palpation, nontender and No hepatosplenomegaly present Auscultation: normal bowel sounds General: Yes no CVA tenderness Back/Spine/Pelvis Back: no CVA tenderness Thoracic/Lumbar Spine: thoracic and lumbar spine normal to inspection Skin Rashes: no rashes Neuro General: patient oriented x3, moves all extremities, no focal motor deficits and CN's II-XI intact bilaterally Cranial nerves: Yes Equal, round and reactive pupils present Cognition (Neuro): normal cognition Gait exam (Neuro): Normal gait present Deep tendon reflexes (DTR's): Right triceps reflex intensity grade: 2+, Left triceps reflex intensity grade: 2+, Rt Biceps (C5, C6): 2+, Left biceps reflex intensity grade: 2+, Right brachioradialis reflex intensity grade: 2+, Left brachioradialis reflex intensity grade: 2+, Right patellar reflex intensity grade: 2+ and Left patellar reflex intensity grade: 2+ Extrem General: Yes no clubbing, cyanosis or edema Left lower extremity: foot Details: no tenderness Results Reviewed Results Reviewed: Laboratory Tests 03/09/25 03/09/25 07:08 07:09 WBC 7.8 RBC 5.16 Hgb 15.2 Hct 44.2 MCV 85.7 MCH 29.5 MCHC 34.4 RDW 11.5 Plt Count 234 MPV 10.3 Sodium 143 Potassium 4.2 Chloride 107 Carbon Dioxide 29 Anion Gap 11 L BUN 13 Creatinine 0.98 Estimated GFR > 60 Fasting Glucose 94 Calcium 9.3 Total Bilirubin 1.7 H AST 27 ALT 21 Alkaline Phosphatase 54 Total Protein 6.6 Albumin 4.5 Triglycerides 82 Cholesterol 146 LDL Cholesterol, Calc 99 HDL Cholesterol 31 L Prostate Specific Ag 3.04 25-OH Vitamin D Total 80.8 TSH 2.07 Urine Color Dark Yellow Urine Appearance Clear Urine pH 5.5 Ur Specific [place] 1.025 Urine Protein Negative Urine Glucose (UA) Negative Urine Ketones Trace Urine Blood Negative Urine Nitrite Negative Ur Leukocyte Esterase Trace H Urine RBC 0-2 Urine WBC 0-5 Ur Squamous Epith Cells 0-2 Urine Bacteria None Seen Hyaline Casts 0-2 Coding Level of Care Code Est Pt Prev Care 40-64y(95675) Diagnoses Annual physical exam Z00.00 Essential hypertension I10 Pure hypercholesterolemia E78.00 GERD without esophagitis K21.9 Elevated bilirubin R17 Elevated PSA, less than 10 ng/ml R97.20 Pain of left heel M79.672 Allergic rhinitis, unspecified seasonality, unspecified trigger J30.9 Allergic rhinitis seasonality: unspecified Allergic rhinitis trigger: unspecified Erectile dysfunction, unspecified erectile dysfunction type N52.9 Erectile dysfunction type: unspecified Hyperpigmented skin lesion L81.9 Overweight (BMI 25.0-29.9) E66.3 Colon cancer screening Z12.11 Additional Codes SHERRIE-7 Assessment Billing - SHERRIE-7 Assessment Tool: SHERRIE-7 Assessment 87846 ([id number]) PHQ-9 - 47784 - PHQ-9 Billing: Yes ([id number]) Time Spent (min) 37 Assessment & Plan Assessment & Plan (1) Annual physical exam: Code(s): Z00.00 - Encounter for general adult medical examination without abnormal findings Category: Medical Plan: Preventative guidelines and recent labs reviewed with the patient. Reports that he completed the Cologuard test and received confirmation that it was received. The result is not available at this time. (2) Essential hypertension: Code(s): I10 - Essential (primary) hypertension Category: Medical Plan: Blood pressure is above goal 138/82-goal is systolic BP 130 mm Hg or less Suspected related to office visit-encouraged low-salt diet and adequate hydratio n Continue Atenolol 25 mg QD Patient is reminded to continue monitoring his blood pressure regularly (3) Pure hypercholesterolemia: Code(s): E78.00 - Pure hypercholesterolemia, unspecified Category: Medical Plan: The patient's cholesterol has improved and is lower than it has been in years without the use of medication. LDL decreased to 99 from 137 mm/dL. Continue current lifestyle efforts and monitor with annual lab work. We will continue to monitor (4) GERD without esophagitis: Code(s): K21.9 - Gastro-esophageal reflux disease without esophagitis Category: Medical Plan: Do not eat meals or drink carbonated beverages within 3 hr of bedtime Decrease the amount of fried, fatty, and spicy foods to decrease gastric acid production Raise the head of the bed using 4 to 6-inch blocks, especially if nocturnal symptoms are present Lose weight if indicated; avoid tight-fitting clothing, especially around the waist Avoid foods that relax the Lower esophageal sphincter (chocolate, peppermint, high-fat foods etc.,) Continue omeprazole 20 mg daily (5) Elevated bilirubin: Comment: (+) elevated total bilirubin level as far back as 2003 Code(s): R17 - Unspecified jaundice Category: Medical Plan: His serum bilirubin level is again elevated on his recent labs - he's had elevated bilirubin level as far back as 2003 Direct bilirubin level is normal in 2022 He is advised that 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 He will follow up with his urologist, Cassandra Obregon NP, tomorrow for continued management. (7) Pain of left heel: Code(s): M79.672 - Pain in left foot Category: Medical Plan: Discussed that his foot/heel pain is likely due to calcaneal spur(s) or plantar fasciitis x-rays of the left foot/heel for further evaluation showed a small plantar calcaneal spur and mild degenerative changes 1st metatarsophalangeal joint. Patient reports that the podiatry referral for foot and ankle pain was not followed up on, as he found a stretching technique that alleviated the pain. (8) Allergic rhinitis: Code(s): J30.9 - Allergic rhinitis, unspecified Category: Medical Qualifiers: Allergic rhinitis seasonality: unspecified Allergic rhinitis trigger: unspecified Qualified Code(s): J30.9 - Allergic rhinitis, unspecified Plan: Limit exposure to allergens Air purifiers and dust filters Air conditioner in house, especially where sleeping Continue Fexofenadine-pseudoephedrine 60 120 mg ER 1 tab q.12 H p.r.n. (9) Erectile dysfunction: Code(s): N52.9 - Male erectile dysfunction, unspecified Category: Medical Qualifiers: Erectile dysfunction type: unspecified Qualified Code(s): N52.9 - Male erectile dysfunction, unspecified Plan: Continue Tadalafil 5 mg QD PRN (10) Hyperpigmented skin lesion: Comment: on the parietal scalp area Code(s): L81.9 - Disorder of pigmentation, unspecified Category: Medical Plan: He was also referred to dermatology and had benign age spots removed from his head (11) Overweight (BMI 25.0-29.9): Code(s): E66.3 - Overweight Category: Medical Plan: Reinforced diet/exercise as tolerated/lose weight (12) Colon cancer screening: Code(s): Z12.11 - Encounter for screening for malignant neoplasm of colon Category: Medical Plan: Patient reports that he completed Cologuard and received confirmation that it was received. However, the results isn't available as yet. Plan To return in 1 year for his next annual physical examination Orders: Orders Complete Blood Count Auto Diff 1 Year E66.3 - Overweight, E78.00 - Pure hypercholesterolemia, unspecified, I10 - Essential (primary) hypertension, J30.9 - Allergic rhinitis, unspecified, K21.9 - Gastro-esophageal reflux disease without esophagitis, R97.20 - Elevated prostate specific antigen [PSA], Z00.00 - Encounter for general adult medical examination without abnormal findings Comprehensive Davis. Panel Fast 1 Year E66.3 - Overweight, E78.00 - Pure hypercholesterolemia, unspecified, I10 - Essential (primary) hypertension, J30.9 - Allergic rhinitis, unspecified, K21.9 - Gastro-esophageal reflux disease without esophagitis, R97.20 - Elevated prostate specific antigen [PSA], Z00.00 - Encounter for general adult medical examination without abnormal findings Lipid Panel 1 Year E66.3 - Overweight, E78.00 - Pure hypercholesterolemia, unspecified, I10 - Essential (primary) hypertension, J30.9 - Allergic rhinitis, unspecified, K21.9 - Gastro-esophageal reflux disease without esophagitis, R97.20 - Elevated prostate specific antigen [PSA], Z00.00 - Encounter for general adult medical examination without abnormal findings PSA,Total (Free>4and<10) 1 Year E66.3 - Overweight, E78.00 - Pure hypercholesterolemia, unspecified, I10 - Essential (primary) hypertension, J30.9 - Allergic rhinitis, unspecified, K21.9 - Gastro-esophageal reflux disease without esophagitis, R97.20 - Elevated prostate specific antigen [PSA], Z00.00 - Encounter for general adult medical examination without abnormal findings Bilirubin Direct 1 Year R17 - Unspecified jaundice TSH reflex Free T4 1 Year E66.3 - Overweight, E78.00 - Pure hypercholesterolemia, unspecified, I10 - Essential (primary) hypertension, J30.9 - Allergic rhinitis, unspecified, K21.9 - Gastro-esophageal reflux disease without esophagitis, R97.20 - Elevated prostate specific antigen [PSA], Z00.00 - Encounter for general adult medical examination without abnormal findings UA CC w/rflx Micro + Cult 1 Year E66.3 - Overweight, E78.00 - Pure hypercholesterolemia, unspecified, I10 - Essential (primary) hypertension, J30.9 - Allergic rhinitis, unspecified, K21.9 - Gastro-esophageal reflux disease without esophagitis, R97.20 - Elevated prostate specific antigen [PSA], Z00.00 - Encounter for general adult medical examination without abnormal findings Vitamin D 25-OH Total 1 Year E66.3 - Overweight, E78.00 - Pure hypercholesterolemia, unspecified, I10 - Essential (primary) hypertension, J30.9 - Allergic rhinitis, unspecified, K21.9 - Gastro-esophageal reflux disease without esophagitis, R97.20 - Elevated prostate specific antigen [PSA], Z00.00 - Encounter for general adult medical examination without abnormal findings Reticulocyte Count 1 Year R17 - Unspecified jaundice
[2025-03-14 15:00] VITALS: BP 138/82
== END 2025-03-14 15:03 | disposition home or self-care (01) ==
LOC: HO.HMCH 14:20
PROVIDERS: PCP Internal Medicine
DX: Z00.00 Encounter for general adult medical examination without abnormal findings (principal); I10 Essential (primary) hypertension; E78.00 Pure hypercholesterolemia, unspecified; K21.9 Gastro-esophageal reflux disease without esophagitis; R17 Unspecified jaundice; R97.20 Elevated prostate specific antigen [PSA]; M79.672 Pain in left foot; J30.9 Allergic rhinitis, unspecified; N52.9 Male erectile dysfunction, unspecified; L81.9 Disorder of pigmentation, unspecified; E66.3 Overweight; Z12.11 Encounter for screening for malignant neoplasm of colon

== ENCOUNTER → 2025-03-14 14:18 | Outpatient (BNVA) | payer OTHER, SELFPAY | PROVIDERS: PCP Internal Medicine | DX: Z00.00 Encounter for general adult medical examination without abnormal findings (principal); I10 Essential (primary) hypertension; E78.00 Pure hypercholesterolemia, unspecified; K21.9 Gastro-esophageal reflux disease without esophagitis; R17 Unspecified jaundice; R97.20 Elevated prostate specific antigen [PSA]; M79.672 Pain in left foot; J30.9 Allergic rhinitis, unspecified; N52.9 Male erectile dysfunction, unspecified; L81.9 Disorder of pigmentation, unspecified; E66.3 Overweight; Z68.27 Body mass index [BMI] 27.0-27.9, adult | CPT/HCPCS: 96127 ==

== ENCOUNTER 2025-03-15 07:38 | Outpatient (AMB) | payer OTHER, SELFPAY ==
--- OUTSIDE RECORDS SUMMARY | 2025-03-15 07:42 | XMS_ITS ---
Author Organization Unknown ENCOUNTERS Encounter Performer Location Date Diagnosis Diagnosis Status Outpatient [address] [id number] [facility] [address] [id number] [facility] *Note: Encounters from your own facility or health system may be excluded. Allergies, Adverse Reactions, Alerts Allergen Type Severity Identification Date Medications Name Date Quantity Days Supplied GPI Number
--- NOTE | 2025-03-15 07:52 | MHC.OFFVIS ---
Intake Visit Reasons: 6M follow up/ PSA Intake Note: Patient is present for 6M/PSA Urology Medication:TADALAFIL Antibiotic Allergy:NONE Blood Thinner:NONE Latin Professor Required: No Allergies hydrochlorothiazide Adverse Reaction (Intermediate, Verified 03/15/25 09:19) Dizziness lisinopril Adverse Reaction (Intermediate, Verified 03/15/25 09:19) dizziness Medication List - Last Reconciled 03/15/25 by JOEL Snyder atenolol 25 mg PO DAILY 90 days fexofenadine-pseudoephedrine 60-120 mg ER 1 tab PO Q12H PRN 90 days omeprazole 20 mg PO DAILY 90 days tadalafil 5 mg PO DAILY 30 days HPI Comments Details: Jimi is a very pleasant 59-year-old male patient of Dr. Barbosa. He has a past medical history of GERD, ED, elevated bilirubin, hypercholesteremia, and hypertension. He presents to the office today for follow-up of his elevated PSA. In discussion with the patient today he reports to be doing and feeling well. He denies having had any bothersome urinary issues or concerns since his last office visit here. He discusses his recent follow-up for his annual physical with his PCP. Recent PSA results reviewed with the patient today as noted and trended below. Previous workup has included a retroperitoneal ultrasound 09/08 noting bilateral kidneys with no calculi, lesions, and or hydronephrosis. The prostate measures approximately 19 mL. Pre void bladder volume is approximately 565 mL. Postvoid bladder volume is approximately 165 mL. PSAs are as follows: 03/08 4.2, 04/08 3.4, 03/09 3.4, 09/08 3.3, 03/10 3.0 He denies urinary urgency, urinary frequency, incontinence, nocturia, hematuria, dysuria, foul smelling urine, changes to urinary stream, flank pain, fever, and or chills. He is happy with his current voiding parameters. We did discuss potential causes of elevated PSA as well as variable PSA. We did discussed further treatment options and risks and benefits of these treatment options. We will continue with surveillance monitoring. All questions were answered. He otherwise offers no other issues or concerns at this time. [facility] Medical History GERD without esophagitis Overweight (BMI 25.0-29.9) Erectile dysfunction Elevated bilirubin Pure hypercholesterolemia Essential hypertension Surgical History H/O vasectomy History of hernia surgery H/O elbow surgery Family History Mother No problems noted. Father No problems noted. Social History Housing: House Alcohol intake: current Alcohol intake frequency: a few times a month Patient Tobacco Use Status: Never used Tobacco e-Cigarette/Vaping Use: Never Used Second Hand Smoke Exposure: No service: No Current occupational status: employed Cognitive needs: No Hearing needs: No Vision needs: Yes (Glasses) Review of Systems Const All systems reviewed & are unremarkable except as noted in HPI and below Physical Exam Const General: cooperative, healthy appearing, comfortable, no acute distress, well developed, alert and awake Orientation/consciousness: patient oriented x3 Limitations: no limitations HEENT Head: Yes normal to inspection, Yes normocephalic and Yes atraumatic Ears: hearing grossly normal bilaterally Eyes General: appearance normal, both eyes and all related structures Neck Neck: Yes normal visual inspection and Yes trachea midline Chest Chest palpation & inspection: normal inspection of the chest Resp Effort & Inspection: normal respiratory effort and able to speak in complete sentences Cardio Rate: regular rate GI Inspection: Yes normal to inspection General: Yes no CVA tenderness Back/Spine/Pelvis Back: no CVA tenderness Skin General skin exam: no rashes or lesions noted Neuro General: patient oriented x3 Extrem General: Yes normal to inspection Psych Appearance: grossly normal and well kempt Mental Status: mental status grossly normal Speech and movement: Normal speech and movement present and Clear speech present Affect: normal affect Attitude: cooperative Thought process: Normal thought process present Thought content: Normal thought content present Insight: Fair insight present (Psych) Judgement: Fair judgement present (Psych) Results AMB Urinalysis, Automated UA Leukoctes 15 Ene/uL Last Edit by MARIE Whitaker on 03/15/25 08:12 UA Nitrite Negative Last Edit by MARIE Whitaker on 03/15/25 08:12 UA Urobilinogen 0.2 mg/dL Last Edit by MARIE Whitaker on 03/15/25 08:12 UA Protein 30 mg/dL Last Edit by MARIE Whitaker on 03/15/25 08:12 UA pH 6.0 Last Edit by MARIE Whitaker on 03/15/25 08:12 UA Blood 0 Oswaldo/uL Last Edit by MARIE Whitaker on 03/15/25 08:12 UA Specific [place] 1.030 Last Edit by MARIE Whitaker on 03/15/25 08:12 UA Ketone Negative Last Edit by MARIE Whitaker on 03/15/25 08:12 UA Bilirubin 2 mg/dL Last Edit by MARIE Whitaker on 03/15/25 08:12 UA Glucose 0 mg/dL Last Edit by MARIE Whitaker on 03/15/25 08:12 Results Reviewed Results Reviewed: Laboratory Last Values Urine pH (Auto) 6.0 03/15/25 08:11 Specific [place] (Auto) 1.030 03/15/25 08:11 Urine Protein (Auto) 30 mg/dL 03/15/25 08:11 Glucose (UA)(Auto) 0 mg/dL 03/15/25 08:11 Urine Ketones (Auto) Negative 03/15/25 08:11 Urine Blood (Auto) 0 Oswaldo/uL 03/15/25 08:11 Urine Nitrite (Auto) Negative 03/15/25 08:11 Urine Bilirubin (Auto) 2 mg/dL 03/15/25 08:11 Urine Urobilinogen (Auto) 0.2 mg/dL 03/15/25 08:11 Leukocyte Esterase (Auto) 15 Ene/uL 03/15/25 08:11 Assessment & Plan Assessment & Plan (1) Elevated PSA: Code(s): R97.20 - Elevated prostate specific antigen [PSA] Category: Medical Plan In office urinalysis results with the patient today; as noted above. Recent PSA results with the patient today; as noted above. We did discussed potential causes of elevated/variable PSA as well as further treatment options and risks and benefits of these treatment options. All questions were answered. He currently denies any bothersome urinary issues or concerns. He reports be happy with current voiding parameters. Will continue with surveillance monitoring. Will obtain PSA in 1 year. Follow-up in 1 year with PSA; or sooner with any issues, concerns, and or questions. Orders: Orders AMB Urinalysis Automated Today Z13.9 - Encounter for screening, unspecified Prostate Specific Antigen 1 Year R97.20 - Elevated prostate specific antigen [PSA] Patient Instructions: The patient had an opportunity to ask questions regarding the treatment plan. All questions were answered. Physical exam, labs, and imaging were discussed and reviewed in detail. As well as risks, benefits, and discussion of treatment choices. No major barriers to understanding were identified. The patient expressed understanding and agreement with the above treatment plan. The patient was made aware they should contact our office by phone for worsening of their current condition, the appearance of new symptoms, or with any questions or concerns. Compliance is encouraged with any medications and follow up testing that is ordered. It is a privilege to be allowed the opportunity to participate in? your urological care.? Again, if you have any questions or concerns If you have any questions or concerns please do not hesitate to contact me. The office is [phone]. This note is constructed using voice recognition software. While every effort has been made to ensure accuracy military communications specialist errors may have been included. Yours sincerely, JOEL Snyder Coding Level of Care Code Est Pt Level 3 (79866) Diagnoses Elevated PSA R97.20
== END 2025-03-15 08:18 | disposition home or self-care (01) ==
LOC: HO.HUSH 07:38
PROVIDERS: PCP Internal Medicine; Visit Provider Nurse Practitioner Family
DX: Z13.9 Encounter for screening, unspecified (principal); R97.20 Elevated prostate specific antigen [PSA]
CPT/HCPCS: 99213

== ENCOUNTER → 2025-03-15 07:38 | Outpatient (BNVA) | payer OTHER, SELFPAY | PROVIDERS: PCP Internal Medicine; Visit Provider Nurse Practitioner Family | DX: R97.20 Elevated prostate specific antigen [PSA] (principal) | CPT/HCPCS: 81003 ==